=== PATIENT | male | born 1940 | race Caucasian/White ===

== ENCOUNTER → 2021-04-21 11:39 | Outpatient (BNVA) | payer MEDICARE, BC, SELFPAY | PROVIDERS: PCP Family Medicine; Visit Provider Internal Medicine | DX: J44.9 Chronic obstructive pulmonary disease, unspecified (principal) | CPT/HCPCS: 99212 ==

== ENCOUNTER → 2022-04-12 11:36 | Outpatient (BNVA) | payer MEDICARE, BC, SELFPAY | PROVIDERS: PCP Family Medicine; Visit Provider Internal Medicine | DX: J44.9 Chronic obstructive pulmonary disease, unspecified (principal); R06.00 Dyspnea, unspecified; Z79.899 Other long term (current) drug therapy | CPT/HCPCS: 99212 ==

== ENCOUNTER 2022-06-21 11:54 | Outpatient (REF) | payer MEDICARE, BC, SELFPAY ==
--- NOTE | 2022-06-21 14:52 | PFT_ITS ---
This is a pre and post spirometry[place] [address]. This is not a pulmonary function study. INDICATION: COPD. SPIROMETRY: FEV1 to FVC 47% with an FEV1 of 0.89 which is 32% predicted and an FVC of 1.9 L, which is 53% predicted. Post bronchodilators, there was a trend improvement of the FVC of 11%. To note, the [id number] decreased down to 19% predicted. COMPARISONS: None. INTERPRETATION: There is an obstructive ventilatory defect consistent with very severe COPD. The patient had a trend response to bronchodilators and significant small airways disease. Clinical correlation warranted. MD DARYL James/BEATRIZ / [id number]
== END 2022-06-21 11:55 | disposition home or self-care (01) ==
LOC: HO.RESP 11:54
PROVIDERS: PCP Family Medicine; Visit Provider Internal Medicine
DX: R06.00 Dyspnea, unspecified (principal); J44.9 Chronic obstructive pulmonary disease, unspecified
CPT/HCPCS: 94060; 99212

== ENCOUNTER → 2022-07-18 15:18 | Outpatient (BNVA) | payer MEDICARE, BC, SELFPAY | PROVIDERS: Visit Provider Internal Medicine | DX: J44.9 Chronic obstructive pulmonary disease, unspecified (principal); R06.00 Dyspnea, unspecified; L97.929 Non-pressure chronic ulcer of unspecified part of left lower leg with unspecified severity | CPT/HCPCS: Q3014 ==

== ENCOUNTER → 2022-08-09 11:15 | Outpatient (BNVA) | payer MEDICARE, BC, SELFPAY | PROVIDERS: Visit Provider Internal Medicine | DX: J44.9 Chronic obstructive pulmonary disease, unspecified (principal); R06.00 Dyspnea, unspecified; R09.02 Hypoxemia; L97.929 Non-pressure chronic ulcer of unspecified part of left lower leg with unspecified severity | CPT/HCPCS: 94618; 99212 ==

== ENCOUNTER → 2023-03-30 11:04 | Outpatient (BNVA) | payer MEDICARE, BC, SELFPAY | PROVIDERS: Visit Provider Internal Medicine | DX: J44.9 Chronic obstructive pulmonary disease, unspecified (principal); R06.00 Dyspnea, unspecified; L97.929 Non-pressure chronic ulcer of unspecified part of left lower leg with unspecified severity | CPT/HCPCS: 99212 ==

== ENCOUNTER 2023-05-23 12:59 | Outpatient (AMB) | payer MEDICARE, BC, SELFPAY ==
[2023-05-23 13:15] VITALS: BMI 31.6
--- NOTE | 2023-05-23 13:15 | A.OFFVIS_ITS ---
Intake Vital Signs 05/23/23 13:15 Height 5 ft 8 in Weight 208 lb BMI 31.6 Intake Visit Reasons: [employer]ER-Left hand CTS EMG done Intake Note: Altaf 82 yr old left hand dominant male presents today for numbness and tingling of both hands. Hx of left hand CTR DOS 03/03/22. States he cont's to have numbness and tingling in his left hand. Patient states he had an EMG done in [place]. Patient has tried injections in the past with temporarily help. Patient would like to discuss treatment vs surgical intervention. Allergies No Known Allergies [No Known Allergies*] Allergy (Verified 05/23/23 13:16) HPI [employer]ER-Left hand CTS EMG done HPI Details Altaf is an 82 year old left hand dominant man who presents with complaints of left hand numbness & pain. He has a hx of a left carpal tunnel release in [place], DOS: 03/03/22. He reports continued numbness in the median nerve distribution of the left hand following his surgery. He also complains of numbness in the small finger of the left hand He also complains of pain in multiple fingers of his left hand, as well as some pain in his forearm. He says he has stiffness in his fingers and works on ROM at home, using an exercise ball at times. He says that he has lost motor function in his left hand. He says he has lost writing ability & dexterity in his hand. He says he has difficulties caring for himself in the bathroom due to his hand numbness. He was frustrated with his treatment by the doctors in [place]. He reports having multiple MRI's performed following his carpal tunnel surgery, but says no one sat with him and explained the results of this study He has a hx of spinal stenosis & psoriatic arthritis. His NCS showed left carpal tunnel and some evidence of cervical radiculopathy. He had an MRI of his C-spine done [facility] Medical History COPD (chronic obstructive pulmonary disease) Hypoxemia Leg ulcer, left Social History (Updated 05/23/23 @ 13:17 by ROSMERY Mckinney) Patient Tobacco Use Status: Former Tobacco user Current occupational status: retired Current occupation: left hand Review of Systems Const All systems reviewed & are unremarkable except as noted in HPI and below Physical Exam Vital Signs: BMI result Body Mass Index 31.6 Const General: cooperative, healthy appearing and no acute distress Orientation/consciousness: patient oriented x3 HEENT Head: Yes normocephalic and Yes atraumatic Eyes EOM: EOMs intact bilaterally Resp Effort & Inspection: normal respiratory effort and able to speak in complete sentences Cardio Jugular venous distension: no JVD Skin General skin exam: turgor normal Rashes: no rashes Neuro General: patient oriented x3 Extrem Other: Evaluation of Left Upper Extremity: The patient is alert, oriented, and in no acute distress. He expressed anger at his previous hand surgeon, and the [facility] in general Neuro: Numbness at the tips of all digits, slightly better sensation in the sma ll finger Some thenar atrophy Weak APB muscle belly firing Vascular: Cap refill brisk ROM: He can make a fist and extend all his digits No visible locking or catching of any fingers seen today Not particularly tender over the a1 gail the fingers of his left hand He has some generalized arthritic changes in his hand. Skin: No lacerations or abrasions. General: No Ecchymosis. No Erythema or evidence of infection. Nerve Conduction Study: Done on left side only From [facility] [place], [place] Approximately November 2021 Dictated in from scanned document: Comments: 1. Borderline normal distal latency 2 left median sensory nerve. Normal left ulnar and radial sensory nerve conduction studies 2. Borderline normal distal latency to the left median motor nerve. Normal left ulnar motor nerve conduction. 3. Normal insertional activity, JENA P waveform, duration and amplitude, and recruitment frequency in the muscle sampled Impression: 1. There is an improvement of the distal latency at the sensory and motor median nerves. 2. The patient has reduced amplitude in both studies which could be consistent of chronic radiculopathy. MRI of the cervical spine to evaluate for cervical radiculitis ordered today. 3. No evidence of plexopathy, motor neuropathy, myopathy, peripheral neuropathy or mononeuropathies in the limbs studied Skyler Ramirez MD Approximately November of 2021: No date seen on document Psych Appearance: grossly normal Affect: normal affect Attitude: cooperative Assessment & Plan Assessment & Plan (1) History of carpal tunnel surgery of left wrist: Code(s): Z98.890 - Other specified postprocedural states (2) Cervical radiculopathy: Code(s): M54.12 - Radiculopathy, cervical region (3) Weakness of left upper extremity: Code(s): R29.898 - Other symptoms and signs involving the musculoskeletal system Plan Assessment & Plan: 1. Left Carpal tunnel syndrome, S/P release DOS: 03/03/22, in [place] With dense numbness in the median nerve distribution before and following surgery With weak APB muscle belly firing and some thenar atrophy 2. Left hand numbness 3. Left upper extremity weakness Patient feels this is worsening Evidence of cervical radiculopathy seen on NCS The patient is bitterly frustrated and unhappy that he continues to have numbness and poor motor function o his LUE. I had a long discussion with him concerning his dense numbness and poor motor function, and explained that this may be caused by issues with his C-spine. His NCS revealed possible evidence of cervical radiculopathy I explained to him that I do not think that he needs a 2nd carpal tunnel release, and that a carpal tunnel injection would not be helpful. I referred him to Dr. Alonso in Pain Management for assessment, and recommend that he bring a copy of his most recent MRI results to this appointment if possible. I explained that I do not know if he will then be referred to the spine surgeon or not. Please note that greater than 60 minutes was spent with this patient going over the history, evaluating the patient and radiographs, formulating possible mitzi tment options, discussing them with the patient, and documenting the visit. Scribed for Adrienne Wells MD by Simone Hebert, emergency medical dispatcher, on 05/23/23 at 2:05 PM, EST. Orders: Referrals Pain Management Referral R29.898 - Other symptoms and signs involving the musc uloskeletal system Coding Level of Care Code New Pt Level 5 (72008) Diagnoses History of carpal tunnel surgery of left wrist Z98.890 Cervical radiculopathy M54.12 Weakness of left upper extremity R29.898
== END 2023-05-23 14:03 | disposition home or self-care (01) ==
PROVIDERS: Visit Provider Orthopaedic Surgery
DX: M54.12 Radiculopathy, cervical region (principal); R29.898 Other symptoms and signs involving the musculoskeletal system
CPT/HCPCS: 99205

== ENCOUNTER → 2023-05-23 12:59 | Outpatient (BNVA) | payer MEDICARE, BC, SELFPAY | PROVIDERS: Visit Provider Orthopaedic Surgery | DX: M54.12 Radiculopathy, cervical region (principal); R29.898 Other symptoms and signs involving the musculoskeletal system; Z98.890 Other specified postprocedural states | CPT/HCPCS: 99202 ==

== ENCOUNTER 2023-08-09 13:04 | Outpatient (AMB) | payer MEDICARE, BC, SELFPAY ==
--- NOTE | 2023-08-09 13:12 | MHC.OFFVIS ---
Intake Vital Signs 08/09/23 13:17 Height 5 ft 8 in Weight 204 lb BMI 31.0 BP 130/70 Blood Pressure Location Lt brachial Position Sitting Pulse 98 Pulse Oximetry (%) 97 Intake Visit Reasons: copd Allergies No Known Allergies [No Known Allergies*] Allergy (Verified 08/09/23 13:25) Medication List - Last Reconciled 08/09/23 by Ziggy Capellan MD albuterol sulfate 2.5 mg (6 mL) inhalation Q4-6H PRN albuterol sulfate 90 mcg/actuation 2 puffs PO Q4-6H PRN 30 days amlodipine 10 mg PO DAILY 30 days apixaban (Eliquis) 5 mg PO BID ascorbate calcium (vitamin C) 500 mg PO DAILY buspirone 10 mg PO TID cholecalciferol (vitamin D3) 50 mcg PO DAILY twgpputonmt-rqbqqpscw-pwcgwcrs 100-62.5-25 mcg (Trelegy Ellipta) 1 ea PO DAILY tramadol 50 mg PO BID PRN trazodone 100 mg PO BEDTIME PRN Do you need a note to return to daycare/school/sports/work: No HPI copd HPI Details This 83 years old gentleman is a known case of chronic obstructive pulmonary disease. He has been relatively stable during the past 1 year, without any acute exacerbation. His the regimen for COPD is simple so that. He can comply with TRELEGY 1 INHALATION DAILY PROAIR 1 OR 2 PUFFS Q 4-6 HOURS ONLY P.R.N. . He gets short of breath on minimal exertion like walking. However he does not walk much due to his impaired locomotion. He does have a walker at home but is to have E and he would need to a lightweight. Walker He talked to me about non pulmonary things the especially the following. 1- has ongoing discomfort in the left hand and fingers due to carpal tunnel syndrome, he has had previous surgery without much benefit. 2- chronic constipation, and ends up using Dulcolax frequently, he does have a stool softener but does not use it all the time. 3- as chronic back pain and discomfort in the knees, due to which his walking is somewhat on stable. 4- as he gets short of breath on minimal walking he was enquiring if he can get oxygen. He also snores at night .but sleeps good There is a possibility of obstructive sleep apnea, or at least nocturnal hypoxemia. The problem at this time is that he wants to go back to [place] next week, and there is not much time for us to complete workup for the above issues. He would need. SIX MINUTES WALK TEST TO QUALIFY FOR PORTABLE O2. HE WOULD ALSO NEED OVERNIGHT OXIMETRY RECORDING , TO CHECK FOR NOCTURNAL HYPOXEMIA. As he is going to live in [place] for the next 6 months, I have suggested to him to see the primary care physician over there and have Referral for a pulmonary consult, or even the primary care physician can do 6 minutes walk and order overnight oximetry recording [facility] Medical History Hypoxemia Leg ulcer, left COPD (chronic obstructive pulmonary disease) Social History Patient Tobacco Use Status: Former Tobacco user Current occupational status: retired Current occupation: left hand Review of Systems Const All systems reviewed & are unremarkable except as noted in HPI and below Reports weight gain Eyes Reports no additional complaints ENT Reports no additional complaints Card Denies chest pain, Denies leg edema and Reports dyspnea on exertion Resp Reports cough (OCCASIONAL , MILD ), Reports dyspnea on exertion and Denies wheezing GI Reports no additional complaints Musc Reports arthralgias (MILD ) Neuro Reports no additional complaints Psych Reports no additional complaints Endo Reports no additional complaints Aller/Immun Denies wheezing Physical Exam Vital Signs: Last Vital Signs Pulse 98 08/09/23 13:17 BP 130/70 08/09/23 13:17 Pulse Ox 97 08/09/23 13:17 BMI result Body Mass Index 31.0 Const General: healthy appearing (EXCEPT FOR BEING OVERWEIGHT .), comfortable, no acute distress, alert and awake Orientation/consciousness: patient oriented x3 HEENT Head: Yes normal to inspection General nose exam: No nasal polyps present and No nasal discharge present Face and sinus: Yes sinuses nontender Mouth: oropharynx normal Throat: Yes posterior oropharynx normal Eyes General: appearance normal, both eyes and all related structures Neck Neck: Yes normal visual inspection, Yes no lymphadenopathy, Yes trachea midline and Yes no JVD Thyroid: Thyroid normal Chest Chest palpation & inspection: normal inspection of the chest, normal palpation of entire chest wall and no tenderness Resp Other: PERCUSSION NOTE IS RESONANT, BREATH SOUNDS ARE VERY DISTANT WITH PROLONGED EXPIRATORY PHASE. NO DEFINITE WHEEZES OR CREPITATIONS ARE HEARD. Effort & Inspection: prolonged expiratory phase Auscultation: no crackles, wheezes (A FEW CREPS OVER RT LL./BASE ) and diminished lung sounds Cardio Palpation: normal PMI Rate: regular rate Rhythm: regular rhythm Heart sounds: no gallops and no murmurs GI Palpation (GI): Soft to palpation, nontender, No hepatosplenomegaly present, no masses and Other GI palpation findings present ( ABDOMINAL WALL IS SOMEWHAT PROTUBERANT BUT NO MASS) Auscultation: normal bowel sounds Back/Spine/Pelvis Thoracic/Lumbar Spine: thoracic and lumbar spine normal to inspection and thoraco-lumbar ROM limited Skin General skin exam: no rashes or lesions noted Neuro General: patient oriented x3, gait normal (Slightly on stable due to arthritis of his knees) and no focal motor deficits Cranial nerves: Yes CN's II-XII intact bilaterally Extrem General: Yes normal to inspection, Yes no calf tenderness, Yes edema (CHRONIC STASIS EDEMA OF BOTH LEGS, BUT MINIMAL AT THIS TIME), Yes venous stasis dermatitis and Yes other (CHRONIC ULCER ON THE LEFT LEG SEEMS TO BE WELL HEALED ) Psych Appearance: grossly normal Speech and movement: Normal speech and movement present Assessment & Plan Assessment & Plan (1) COPD (chronic obstructive pulmonary disease): Comment: HE HAS VERY SEVERE CHRONIC OBSTRUCTIVE PULMONARY DISEASE. AND IT HAS BEEN RELATIVELY STABLE . TX: CONTINUE USING TRELEGY ELLIPTA 1 INHALATION DAILY. PROAIR HFA 2 PUFFS Q 6 HRS PRN WHEN OUTDOORS . ALBUTEROL SOLUTION IN THE NEBULIZER Q 6 HOURS P.R.N..MMWHEN INDOORS CONTINUE TO DO DEEP BREATHING EXERCISES WITH THE INCENTIVE SPIROMETRY DEVICE. Code(s): J44.9 - Chronic obstructive pulmonary disease, unspecified (2) Dyspnea on exertion: Comment: INCREASED DYSPNEA ON EXERTION IS DUE TO COPD AND GENERAL DECONDITIONING. Code(s): R06.00 - Dyspnea, unspecified (3) Hypoxemia: Comment: I SUSPECT THAT HE HAS NOCTURNAL HYPOXEMIA, HE ALSO DOES HAVE EXERCISE INDUCED HYPOXEMIA BUT, ON HIS WALKING TEST O2 SAT DID NOT GO BELOW 89%. LAST YEAR IN JULY 2022 HE HAD OVERNIGHT OXIMETRY RECORDING, WHICH SHOWED O2 SAT BELOW 88% ONLY FOR 4 MINUTES. IT MAY HAVE GOTTEN WORSE. SO HE SHOULD HAVE OVERNIGHT OXIMETRY RECORDING AGAIN, BUT HE IS MOVING DOWN TO [place] IN THE NEXT WEEK, I SUGGESTED THAT HE SHOULD HAVE IT DONE WHILE IN [place]. Code(s): R09.02 - Hypoxemia Coding Level of Care Code Est Pt Level 4 (22422) Diagnoses COPD (chronic obstructive pulmonary disease) J44.9 Dyspnea on exertion R06.00 Hypoxemia R09.02
[2023-08-09 13:17] VITALS: BP 130/70; PULSE 98; O2SAT 97; BMI 31.0
== END 2023-08-09 13:50 | disposition home or self-care (01) ==
PROVIDERS: Visit Provider Internal Medicine
DX: J44.9 Chronic obstructive pulmonary disease, unspecified (principal); R06.00 Dyspnea, unspecified; R09.02 Hypoxemia
CPT/HCPCS: 99214

== ENCOUNTER → 2023-08-09 13:04 | Outpatient (BNVA) | payer MEDICARE, BC, SELFPAY | PROVIDERS: Visit Provider Internal Medicine | DX: J44.9 Chronic obstructive pulmonary disease, unspecified (principal); R06.00 Dyspnea, unspecified; R09.02 Hypoxemia | CPT/HCPCS: 99212 ==

== ENCOUNTER 2024-03-27 14:11 | Outpatient (AMB) | payer MEDICARE, BC, SELFPAY ==
[2024-03-27 14:46] VITALS: BP 130/102; PULSE 67; O2SAT 95
--- NOTE | 2024-03-27 14:46 | A.OFFVIS_ITS ---
Vital Signs 03/27/24 14:46 Height 5 ft 8 in BP 130/102 H Blood Pressure Location Lt brachial Position Sitting Pulse 67 Pulse Source Pulse Oximeter Pulse Oximetry (%) 95 Oxygen Delivery Method Room Air Intake Visit Reasons: COPD Intake Note: pt is here for follow up and having issues with hot weather and having a very difficult time with breathing. Cataract Lens Generator Required: No Allergies No Known Allergies [No Known Allergies*] Allergy (Verified 03/27/24 16:09) Medication List - Last Reconciled 03/27/24 by Ziggy Capellan MD albuterol sulfate 2.5 mg (6 mL) inhalation Q4-6H PRN albuterol sulfate 90 mcg/actuation 2 puffs PO Q4-6H PRN apixaban (Eliquis) 5 mg PO BID ascorbate calcium (vitamin C) 500 mg PO DAILY buspirone 10 mg PO TID cholecalciferol (vitamin D3) 50 mcg PO DAILY qzwjedjuhkg-lumomlhbx-okiocpbb 100-62.5-25 mcg (Trelegy Ellipta) 1 inh PO DAILY meloxicam 15 mg PO DAILY olmesartan 20 mg PO DAILY tramadol 50 mg PO BID PRN trazodone 100 mg PO BEDTIME PRN Do you need a note to return to daycare/school/sports/work: No HPI HPI COPD: Details: Altaf Beltran is 83 years old gentleman, who has come back from [place] since a few weeks ago, and comes today for his pulmonary follow-up. He has impaired locomotion due to chronic stasis edema of the legs, congestive heart failure, and COPD. Comes in wheelchair, at home can walk around with a walker. According to his he is short of breath most of the time, and uses albuterol inhaler quite frequent. He does use Trelegy Ellipta 1 inhalation daily. He claims that his breathing is stable as usual. However his tells us that he is actually more short of breath than before. Altaf, say is that his main problem is constipation and nonspecific abdominal pain and cramps. He has been using Dulcolax 2 tablets every few days with good results but then for a few days he does not have any bowel movement. He does not have any primary care physician to go to, so he wanted to discuss this issue with me. [facility] Medical History Hypoxemia Leg ulcer, left COPD (chronic obstructive pulmonary disease) Social History Patient Tobacco Use Status: Former Tobacco user Current occupational status: retired Current occupation: left hand Review of Systems Const All systems reviewed & are unremarkable except as noted in HPI and below Reports weight gain Eyes Reports no additional complaints ENT Reports no additional complaints Card Denies chest pain, Denies leg edema and Reports dyspnea on exertion Resp Reports cough (OCCASIONAL , MILD ), Reports dyspnea on exertion and Denies wheezing GI Reports no additional complaints Musc Reports arthralgias (MILD ) Neuro Reports no additional complaints Psych Reports no additional complaints Endo Reports no additional complaints Aller/Immun Denies wheezing Physical Exam Vital Signs: Last Vital Signs Pulse 67 03/27/24 14:46 BP 130/102 H 03/27/24 14:46 Pulse Ox 95 03/27/24 14:46 Oxygen Delivery Method Room Air 03/27/24 14:46 Const General: healthy appearing (EXCEPT FOR BEING OVERWEIGHT .), comfortable, no acute distress, alert and awake Orientation/consciousness: patient oriented x3 HEENT Head: Yes normal to inspection General nose exam: No nasal polyps present and No nasal discharge present Face and sinus: Yes sinuses nontender Mouth: oropharynx normal Throat: Yes posterior oropharynx normal Eyes General: appearance normal, both eyes and all related structures Neck Neck: Yes normal visual inspection, Yes no lymphadenopathy, Yes trachea midline and Yes no JVD Thyroid: Thyroid normal Chest Chest palpation & inspection: normal inspection of the chest, normal palpation of entire chest wall and no tenderness Resp Other: PERCUSSION NOTE IS RESONANT, BREATH SOUNDS ARE VERY DISTANT WITH PROLONGED EXPIRATORY PHASE. NO DEFINITE WHEEZES OR CREPITATIONS ARE HEARD. Effort & Inspection: prolonged expiratory phase Auscultation: no crackles, no wheezes and diminished lung sounds Cardio Palpation: normal PMI Rate: regular rate Rhythm: regular rhythm Heart sounds: no gallops and no murmurs GI Palpation (GI): Soft to palpation, nontender, No hepatosplenomegaly present, no masses and Other GI palpation findings present ( ABDOMINAL WALL IS SOMEWHAT PROTUBERANT BUT NO MASS) Auscultation: normal bowel sounds Back/Spine/Pelvis Thoracic/Lumbar Spine: thoracic and lumbar spine normal to inspection and thoraco-lumbar ROM limited Skin General skin exam: no rashes or lesions noted Neuro General: patient oriented x3, gait normal (Slightly on stable due to arthritis of his knees) and no focal motor deficits Cranial nerves: Yes CN's II-XII intact bilaterally Extrem General: Yes normal to inspection, Yes no calf tenderness, Yes edema (CHRONIC STASIS EDEMA OF BOTH LEGS, BUT MINIMAL AT THIS TIME), Yes venous stasis dermatitis and Yes other Psych Appearance: grossly normal Speech and movement: Normal speech and movement present Assessment & Plan Assessment & Plan (1) COPD (chronic obstructive pulmonary disease): Comment: HE HAS VERY SEVERE CHRONIC OBSTRUCTIVE PULMONARY DISEASE. AND IT HAS BEEN RELATIVELY STABLE , NOW SINCE HE HAS COME BACK FROM [place] HE COMPLAINS OF INCREASED SHORTNESS OF BREATH, WITH FREQUENT USE OF RESCUE INHALER. YET HE DOES NOT SEEM TO HAVE EVIDENCE OF ANY CHEST INFECTION. Code(s): J44.9 - Chronic obstructive pulmonary disease, unspecified Category: Medical Plan: TX: CONTINUE USING TRELEGY ELLIPTA 1 INHALATION DAILY. PROAIR HFA 2 PUFFS Q 6 HRS PRN WHEN OUTDOORS . ALBUTEROL SOLUTION IN THE NEBULIZER Q 6 HOURS P.R.N..WHEN INDOORS (2) Dyspnea on exertion: Comment: INCREASED DYSPNEA ON EXERTION IS DUE TO COPD AND GENERAL DECONDITIONING. PATIENT NEEDS TO BE CHECKED FOR HYPOXEMIA. Code(s): R06.00 - Dyspnea, unspecified Category: Medical Plan: ABOVE (3) Hypoxemia: Comment: I SUSPECT THAT HE HAS NOCTURNAL HYPOXEMIA, WE WILL PLAN TO DO AN OVERNIGHT OXIMETRY RECORDING. HE CAN NOT HAVE 6 MINUTES WALK TEST. Code(s): R09.02 - Hypoxemia Category: Medical Plan: OVERNIGHT OXIMETRY RECORDING IS ORDERED. Plan * FOR HIS CONSTIPATION I HAVE ADVISED HIM TO USE COLACE 100 MG ONCE A DAY REGULARLY. AND AVOID USING STRONGER LAXATIVES. HE ALSO NEEDS TO TAKE HIGH ROUGHAGE TYPE OF DIET, WHICH IS EXPLAINED TO HIS . Coding Level of Care Code Est Pt Level 4 (80978) Diagnoses COPD (chronic obstructive pulmonary disease) J44.9 Dyspnea on exertion R06.00 Hypoxemia R09.02
== END 2024-03-27 15:21 | disposition home or self-care (01) ==
PROVIDERS: Visit Provider Internal Medicine
DX: J44.9 Chronic obstructive pulmonary disease, unspecified (principal); R06.00 Dyspnea, unspecified; R09.02 Hypoxemia
CPT/HCPCS: 99214

== ENCOUNTER → 2024-03-27 14:11 | Outpatient (BNVA) | payer MEDICARE, BC, SELFPAY | PROVIDERS: Visit Provider Internal Medicine | DX: J44.9 Chronic obstructive pulmonary disease, unspecified (principal); R06.00 Dyspnea, unspecified; R09.02 Hypoxemia | CPT/HCPCS: 99212 ==

== ENCOUNTER 2024-05-06 11:02 | Outpatient (AMB) | payer MEDICARE, BC, SELFPAY ==
--- NOTE | 2024-05-06 11:02 | MHC.OFFVIS ---
Intake Visit Reasons: Cervical Radiculopathy Allergies No Known Allergies [No Known Allergies*] Allergy (Verified 03/27/24 16:09) PFSH Medical History Hypoxemia Leg ulcer, left COPD (chronic obstructive pulmonary disease) Social History Patient Tobacco Use Status: Former Tobacco user Current occupational status: retired Current occupation: left hand Telehealth Telehealth Telehealth Platform: [employer] Location of provider rendering services: practice address Location of patient: address on file Patient Identification confirmed using: Name, : Yes Telehealth method: video Patient verbally consented to treatment: Yes Patient verbally consented to billing insurance company: Yes Patient informed of any privacy concerns related to visit: Yes Coding
--- NOTE | 2024-05-06 11:02 | MHC.OFFVIS ---
Intake Visit Reasons: Cervical Radiculopathy Allergies No Known Allergies [No Known Allergies*] Allergy (Verified 03/27/24 16:09) HPI HPI Cervical Radiculopathy: Details: 83-year-old male who presents today to the office for an evaluation of cervical radiculopathy. He has a history of a left carpal tunnel release in [place], DOS: 03/03/22. He reports continued numbness in the median nerve distribution of the left hand following his surgery.? He also complains of numbness in the small and ring fingers of the left hand. He also complains of pain and soreness in the upper wrist and palm. He rates his pain at 8/10 in intensity. He says he has stiffness in his fingers and works on ROM at home, using an exercise ball at times. He says that he has lost motor function in his left hand. He has lost writing ability and dexterity in his hand. He has difficulties caring for himself in the bathroom due to his hand numbness. He denies any neck pain. He has a history of spinal stenosis and psoriatic arthritis. His NCS showed a left carpal tunnel and some evidence of cervical radiculopathy. He had an MRI of his c-spine in [place]. He has not done any physical therapy in the past. He had an injection in his wrist at the pain clinic at [place].? [facility] Medical History Hypoxemia Leg ulcer, left COPD (chronic obstructive pulmonary disease) Social History Patient Tobacco Use Status: Former Tobacco user Current occupational status: retired Current occupation: left hand Review of Systems Const All systems reviewed & are unremarkable except as noted in HPI and below Physical Exam Vital Signs: Patient visually demonstrated pain in his left pinky, index fingers and left ulnar aspect of the wrist via video link. Telehealth Telehealth Telehealth Platform: Telephone Location of provider rendering services: practice address Location of patient: address on file Patient Identification confirmed using: Name, : Yes Telehealth method: video Patient verbally consented to treatment: Yes Patient verbally consented to billing insurance company: Yes Patient informed of any privacy concerns related to visit: Yes Minutes spent on Phone/Video with Pt.: 12 Results Reviewed Results Reviewed: No imaging is available for review. Assessment & Plan Assessment & Plan (1) Cervical radiculopathy: Code(s): M54.12 - Radiculopathy, cervical region Category: Medical Plan Based on results of the nerve conduction study, it appears that he does not have any ulnar nerve process to explain his left hand symptoms in the distribution of the ulnar nerve. In that case, a cervical radiculitis source is more likely. I advised the patient to get a copy of his cervical MRI results and send/bring them to us for review. Once I review the MRI images, we can plan for potential interventional therapy in combination with physical therapy for longer-term relief.? In the meantime, a referral was provided to physical therapy. The patient will receive a call to schedule an appointment. I did school counsellor him that given the longstanding nature of his symptoms, it might take 3-4 months of dedicated physical therapy before he starts to observe a meaningful difference in his symptoms. Patient expressed understanding. Scribed for Dr. Alonso by Bartolome Wright, medical collections, on 05/06/2024. I, Dr. Alonso, have personally reviewed and agree with the information entered by the scribe. Orders: Orders PT Evaluation and Treatment Today M54.12 - Radiculopathy, cervical region Coding Level of Care Code Tele New Pt Level 4 (89287) Diagnoses Cervical radiculopathy M54.12
== END 2024-05-06 11:03 | disposition home or self-care (01) ==
LOC: HO.PMC 11:02
PROVIDERS: Visit Provider Internal Medicine
DX: M54.12 Radiculopathy, cervical region (principal)
CPT/HCPCS: 99203

== ENCOUNTER → 2024-05-06 11:02 | Outpatient (BNVA) | payer MEDICARE, BC, SELFPAY | PROVIDERS: Visit Provider Internal Medicine ==

== ENCOUNTER 2024-05-30 11:04 | Outpatient (AMB) | payer MEDICARE, BC, SELFPAY ==
[2024-05-30 11:36] VITALS: BP 150/102; PULSE 74; O2SAT 92; BMI 31.0
--- NOTE | 2024-05-30 11:36 | MHC.OFFVIS ---
Vital Signs 05/30/24 11:36 Height 5 ft 8 in Weight 203 lb 14.841 oz BMI 31.0 BP 150/102 H Blood Pressure Location Lt brachial Position Sitting Pulse 74 Pulse Source Pulse Oximeter Pulse Oximetry (%) 92 Oxygen Delivery Method Room Air Intake Visit Reasons: COPD Intake Note: pt is here for follow up and is using the oxygen at night, and is still short of breath with exertion. [employer] Tool Required: No Allergies No Known Allergies [No Known Allergies*] Allergy (Verified 05/30/24 11:53) Medication List - Last Reconciled 05/30/24 by Ziggy Capellan MD albuterol sulfate 2.5 mg (6 mL) inhalation Q4-6H PRN albuterol sulfate 90 mcg/actuation 2 puffs PO Q4-6H PRN apixaban (Eliquis) 5 mg PO BID ascorbate calcium (vitamin C) 500 mg PO DAILY buspirone 10 mg PO TID cholecalciferol (vitamin D3) 50 mcg PO DAILY ceynwqpslhd-cilyqehfo-tdwnwpsa 100-62.5-25 mcg (Trelegy Ellipta) 1 inh PO DAILY meloxicam 15 mg PO DAILY olmesartan 20 mg PO DAILY tramadol 50 mg PO BID PRN trazodone 100 mg PO BEDTIME PRN Do you need a note to return to daycare/school/sports/work: No HPI HPI COPD: Details: THIS 83 YEARS OLD VERY PLEASANT GENTLEMAN WITH ADVANCED CHRONIC OBSTRUCTIVE PULMONARY DISEASE AND COR PULMONALE, COMES FOR HIS ROUTINE FOLLOW-UP. HE HAS BEEN RELATIVELY STABLE. CONTINUES TO HAVE MILD INTERMITTENT COUGH MOSTLY AT NIGHT. HE DOES SLEEP FAIRLY WELL WITH O2 2 L/MINUTE AT NIGHTTIME. USES HIS RESPIRATORY MEDS REGULARLY. LUCKILY HE HAS HAD NO RESPIRATORY INFECTION. HE DID NOT GET MUCH SWELLING OF HIS LOWER EXTREMITIES. LOCOMOTION IS QUITE IMPAIRED, WALKING IS SLOW BUT HE STILL WALKS WITHOUT ANY ASSISTANCE. [facility] Medical History Hypoxemia Leg ulcer, left COPD (chronic obstructive pulmonary disease) Social History Patient Tobacco Use Status: Former Tobacco user Current occupational status: retired Current occupation: left hand Review of Systems Const All systems reviewed & are unremarkable except as noted in HPI and below Reports weight gain Eyes Reports no additional complaints ENT Reports no additional complaints Card Denies chest pain, Denies leg edema and Reports dyspnea on exertion Resp Reports cough (OCCASIONAL , MILD ), Reports dyspnea on exertion and Denies wheezing GI Reports no additional complaints Musc Reports arthralgias (MILD ) Neuro Reports no additional complaints Psych Reports no additional complaints Endo Reports no additional complaints Aller/Immun Denies wheezing Physical Exam Vital Signs: Last Vital Signs Pulse 74 05/30/24 11:36 BP 150/102 H 05/30/24 11:36 Pulse Ox 92 05/30/24 11:36 Oxygen Delivery Method Room Air 05/30/24 11:36 BMI result Body Mass Index 31.0 Const General: healthy appearing (EXCEPT FOR BEING OVERWEIGHT .), comfortable, no acute distress, alert and awake Orientation/consciousness: patient oriented x3 HEENT Head: Yes normal to inspection General nose exam: No nasal polyps present and No nasal discharge present Face and sinus: Yes sinuses nontender Mouth: oropharynx normal Throat: Yes posterior oropharynx normal Eyes General: appearance normal, both eyes and all related structures Neck Neck: Yes normal visual inspection, Yes no lymphadenopathy, Yes trachea midline and Yes no JVD Thyroid: Thyroid normal Chest Chest palpation & inspection: normal inspection of the chest, normal palpation of entire chest wall and no tenderness Resp Other: PERCUSSION NOTE IS RESONANT, BREATH SOUNDS ARE VERY DISTANT WITH PROLONGED EXPIRATORY PHASE. NO DEFINITE WHEEZES OR CREPITATIONS ARE HEARD. Effort & Inspection: prolonged expiratory phase Auscultation: no crackles, no wheezes and diminished lung sounds Cardio Palpation: normal PMI Rate: regular rate Rhythm: regular rhythm Heart sounds: no gallops and no murmurs GI Palpation (GI): Soft to palpation, nontender, No hepatosplenomegaly present, no masses and Other GI palpation findings present ( ABDOMINAL WALL IS SOMEWHAT PROTUBERANT BUT NO MASS) Auscultation: normal bowel sounds Back/Spine/Pelvis Thoracic/Lumbar Spine: thoracic and lumbar spine normal to inspection and thoraco-lumbar ROM limited Skin General skin exam: no rashes or lesions noted Neuro General: patient oriented x3, gait normal (Slightly on stable due to arthritis of his knees) and no focal motor deficits Cranial nerves: Yes CN's II-XII intact bilaterally Extrem General: Yes normal to inspection, Yes no calf tenderness, Yes edema (CHRONIC STASIS EDEMA OF BOTH LEGS, BUT MINIMAL AT THIS TIME), Yes venous stasis dermatitis and Yes other Psych Appearance: grossly normal Speech and movement: Normal speech and movement present Assessment & Plan Assessment & Plan (1) COPD (chronic obstructive pulmonary disease): Comment: HE HAS VERY SEVERE CHRONIC OBSTRUCTIVE PULMONARY DISEASE. AND IT HAS BEEN RELATIVELY STABLE . HE DOES HAVE PERIODS WHEN HE GETS MORE SHORT OF BREATH THAN USUAL, IT MAY BE RELATED TO THE DEGREE OF FLUID RETENTION. HE FEELS BETTER WITH USE OF OXYGEN AT NIGHT. HE WOULD LIKE TO PORTABLE OXYGEN FOR DAYTIME. Code(s): J44.9 - Chronic obstructive pulmonary disease, unspecified Category: Medical Plan: CONTINUE TRELEGY ELLIPTA 1 INHALATION DAILY ALBUTEROL 2.5 MG IN THE NEBULIZER Q 4-6 HOURS P.R.N AT HOME ALBUTEROL HFA 2 PUFFS Q.4-6 HOURS P.R.N. WHEN OUTDOORS . WE DID TALK TO HIM AND CAUTIONED AGAINST USING ALBUTEROL TOO FREQUENTLY. (2) Dyspnea on exertion: Comment: INCREASED DYSPNEA ON EXERTION IS DUE TO COPD AND GENERAL DECONDITIONING. TODAY PATIENT DID QUALIFY FOR OXYGEN, AND ONCE WE PROVIDE HIM O2 WITH THE PORTABLE CYLINDER, HE IS EXPECTED TO BETTER. Code(s): R06.00 - Dyspnea, unspecified Category: Medical Plan: CONTINUE THE PRESENT MEDICATION, TRY TO WALK AROUND IN THE HOUSE HAS MUCH POSSIBLE. INSTRUCTIONS TO USE PORTABLE OXYGEN. ARE GIVEN (3) Hypoxemia: Comment: THIS GENTLEMAN DOES HAVE NOCTURNAL HYPOXEMIA AND IS BEING TREATED WITH O2 AT NIGHT. 6 MINUTES WALK DONE TODAY AND HE DOES DESATURATE ON WALKING, HYPOXEMIA CONTROLLED WITH SUPPLEMENTAL OXYGEN AT 2 L/MINUTE Code(s): R09.02 - Hypoxemia Category: Medical Plan: WE WILL ORDER O2 WITH PORTABLE CYLINDER TO USE 2 L/MINUTE WHEN OUTDOORS AND WALKING. Coding Level of Care Code Est Pt Level 3 (73349) Diagnoses COPD (chronic obstructive pulmonary disease) J44.9 Dyspnea on exertion R06.00 Hypoxemia R09.02
[2024-05-30 13:25] VITALS: PULSE 64; O2SAT 95
== END 2024-05-30 12:09 | disposition home or self-care (01) ==
PROVIDERS: Visit Provider Internal Medicine
DX: J44.9 Chronic obstructive pulmonary disease, unspecified (principal); R06.00 Dyspnea, unspecified; R09.02 Hypoxemia
CPT/HCPCS: 94618; 99213

== ENCOUNTER → 2024-05-30 11:04 | Outpatient (BNVA) | payer MEDICARE, BC, SELFPAY | PROVIDERS: Visit Provider Internal Medicine | DX: J44.9 Chronic obstructive pulmonary disease, unspecified (principal); R06.00 Dyspnea, unspecified; R09.02 Hypoxemia | CPT/HCPCS: 94618; 99212 ==

== ENCOUNTER 2024-07-03 11:04 | Outpatient (AMB) | payer MEDICARE, BC, SELFPAY ==
[2024-07-03 11:28] VITALS: BP 152/102; PULSE 77; O2SAT 93; BMI 30.7
--- NOTE | 2024-07-03 11:28 | MHC.OFFVIS ---
Vital Signs 07/03/24 11:28 Height 5 ft 8 in Weight 202 lb BMI 30.7 BP 152/102 H Blood Pressure Location Lt brachial Position Sitting Pulse 77 Pulse Source Pulse Oximeter Pulse Oximetry (%) 93 Oxygen Delivery Method Room Air Intake Visit Reasons: COPD Intake Note: pt is here for follow up and states he is using the oxygen at home, he is fatigued, he does feel better with oxygen. Vp Ad Products And Planning Required: No Allergies No Known Allergies [No Known Allergies*] Allergy (Verified 07/03/24 11:38) Medication List - Last Reconciled 07/03/24 by Ziggy Capellan MD albuterol sulfate 2.5 mg (6 mL) inhalation Q4-6H PRN albuterol sulfate 90 mcg/actuation 2 puffs PO Q4-6H PRN apixaban (Eliquis) 5 mg PO BID ascorbate calcium (vitamin C) 500 mg PO DAILY buspirone 10 mg PO TID cholecalciferol (vitamin D3) 50 mcg PO DAILY zagmtzhfbls-afuzqzuhr-lngbcwic 100-62.5-25 mcg (Trelegy Ellipta) 1 inh PO DAILY meloxicam 15 mg PO DAILY olmesartan 20 mg PO DAILY tramadol 50 mg PO BID PRN trazodone 100 mg PO BEDTIME PRN Do you need a note to return to daycare/school/sports/work: No HPI HPI COPD: Details: THIS 83 YEARS OLD GENTLEMAN IS HERE FOR FOLLOW-UP FOR HIS COPD. ON HIS CURRENT REGIMEN HE IS DOING WELL. HE IS FEELING BETTER SINCE HE HAS BEEN USING OXYGEN AT NIGHT AND ALSO HAS THE PORTABLE OXYGEN FOR DAYTIME USE. HE HATES TO USE THE PORTABLE UNIT BECAUSE OF THE BULKY CYLINDER, WANTS TO GET POC SOON POSSIBLE. HE USES TRELEGY ONCE A DAY WHICH HAS BEEN VERY HELPFUL. [facility] Medical History Hypoxemia Leg ulcer, left COPD (chronic obstructive pulmonary disease) Social History Patient Tobacco Use Status: Former Tobacco user Current occupational status: retired Current occupation: left hand Review of Systems Const All systems reviewed & are unremarkable except as noted in HPI and below Reports weight gain Eyes Reports no additional complaints ENT Reports no additional complaints Card Denies chest pain, Denies leg edema and Reports dyspnea on exertion Resp Reports cough (OCCASIONAL , MILD ), Reports dyspnea on exertion and Denies wheezing GI Reports no additional complaints Musc Reports arthralgias (MILD ) Neuro Reports no additional complaints Psych Reports no additional complaints Endo Reports no additional complaints Aller/Immun Denies wheezing Physical Exam Vital Signs: Last Vital Signs Pulse 77 07/03/24 11:28 Pulse Ox 93 07/03/24 11:28 Oxygen Delivery Method Room Air 07/03/24 11:28 BMI result Body Mass Index 30.7 Const General: healthy appearing (EXCEPT FOR BEING OVERWEIGHT .), comfortable, no acute distress, alert and awake Orientation/consciousness: patient oriented x3 HEENT Head: Yes normal to inspection General nose exam: No nasal polyps present and No nasal discharge present Face and sinus: Yes sinuses nontender Mouth: oropharynx normal Throat: Yes posterior oropharynx normal Eyes General: appearance normal, both eyes and all related structures Neck Neck: Yes normal visual inspection, Yes no lymphadenopathy, Yes trachea midline and Yes no JVD Thyroid: Thyroid normal Chest Chest palpation & inspection: normal inspection of the chest, normal palpation of entire chest wall and no tenderness Resp Other: PERCUSSION NOTE IS RESONANT, BREATH SOUNDS ARE VERY DISTANT WITH PROLONGED EXPIRATORY PHASE. NO DEFINITE WHEEZES OR CREPITATIONS ARE HEARD. Effort & Inspection: prolonged expiratory phase Auscultation: no crackles, no wheezes and diminished lung sounds Cardio Palpation: normal PMI Rate: regular rate Rhythm: regular rhythm Heart sounds: no gallops and no murmurs GI Palpation (GI): Soft to palpation, nontender, No hepatosplenomegaly present, no masses and Other GI palpation findings present ( ABDOMINAL WALL IS SOMEWHAT PROTUBERANT BUT NO MASS) Auscultation: normal bowel sounds Back/Spine/Pelvis Thoracic/Lumbar Spine: thoracic and lumbar spine normal to inspection and thoraco-lumbar ROM limited Skin General skin exam: no rashes or lesions noted Neuro General: patient oriented x3, gait normal (Slightly on stable due to arthritis of his knees) and no focal motor deficits Cranial nerves: Yes CN's II-XII intact bilaterally Extrem General: Yes normal to inspection, Yes no calf tenderness, Yes edema (CHRONIC STASIS EDEMA OF BOTH LEGS, BUT MINIMAL AT THIS TIME), Yes venous stasis dermatitis and Yes other Psych Appearance: grossly normal Speech and movement: Normal speech and movement present Results Reviewed Results Reviewed: 6 MINUTES WALK WITH THE O2 CONSERVING MODE Assessment & Plan Assessment & Plan (1) COPD (chronic obstructive pulmonary disease): Comment: HE HAS VERY SEVERE CHRONIC OBSTRUCTIVE PULMONARY DISEASE. AND IT HAS BEEN RELATIVELY STABLE . HE DOES HAVE PERIODS WHEN HE GETS MORE SHORT OF BREATH THAN USUAL, IT MAY BE RELATED TO THE DEGREE OF FLUID RETENTION. HE FEELS BETTER WITH USE OF OXYGEN AT NIGHT. HE WOULD LIKE TO PORTABLE OXYGEN FOR DAYTIME. Code(s): J44.9 - Chronic obstructive pulmonary disease, unspecified Category: Medical Plan: CONTINUE TRELEGY ELLIPTA 1 INHALATION DAILY ALBUTEROL HFA Q 4-6 HOURS P.R.N. ALTERNATIVELY USE ALBUTEROL SOLUTION 2.5 MG IN THE NEBULIZER Q 6 HOURS P.R.N. (2) Dyspnea on exertion: Comment: INCREASED DYSPNEA ON EXERTION IS DUE TO COPD AND GENERAL DECONDITIONING. TODAY PATIENT DID QUALIFY FOR OXYGEN, AND ONCE WE PROVIDE HIM O2 WITH THE PORTABLE CYLINDER, HE IS EXPECTED TO BETTER. Code(s): R06.00 - Dyspnea, unspecified Category: Medical Plan: HE DOES NEED PORTABLE OXYGEN WHEN WALKING, AND THAT WILL MINIMIZE HIS DYSPNEA ON EXERTION. (3) Hypoxemia: Comment: THIS GENTLEMAN DOES HAVE NOCTURNAL HYPOXEMIA AND IS BEING TREATED WITH O2 AT NIGHT. 6 MINUTES WALK DONE TODAY AND HE DOES DESATURATE ON WALKING, HYPOXEMIA CONTROLLED WITH SUPPLEMENTAL OXYGEN AT 2 L/MINUTE Code(s): R09.02 - Hypoxemia Category: Medical Plan: ON 6 MINUTES WALK HE DID OKAY WITH THE OXYGEN CONSERVING MODE AND USING POC AT SETTING OF 4. FEELS MUCH BETTER. WE WILL ARRANGE FOR HIM TO GET POC, AND HE WILL HAVE TO TAKE THAT ALONG WITH HIM WHEN HE GOES TO [place]. Coding Level of Care Code Est Pt Level 3 (07754) Diagnoses COPD (chronic obstructive pulmonary disease) J44.9 Dyspnea on exertion R06.00 Hypoxemia R09.02
[2024-07-03 13:58] VITALS: PULSE 79; O2SAT 96
== END 2024-07-03 12:17 | disposition home or self-care (01) ==
PROVIDERS: Visit Provider Internal Medicine
DX: J44.9 Chronic obstructive pulmonary disease, unspecified (principal); R06.00 Dyspnea, unspecified; R09.02 Hypoxemia
CPT/HCPCS: 94618; 99213

== ENCOUNTER → 2024-07-03 11:04 | Outpatient (BNVA) | payer MEDICARE, BC, SELFPAY | PROVIDERS: Visit Provider Internal Medicine | DX: J44.9 Chronic obstructive pulmonary disease, unspecified (principal); R06.00 Dyspnea, unspecified; R09.02 Hypoxemia; Z99.81 Dependence on supplemental oxygen | CPT/HCPCS: 94618; 99212 ==

== ENCOUNTER 2024-07-29 11:37 | Outpatient (AMB) | payer MEDICARE, BC, SELFPAY ==
--- NOTE | 2024-07-29 11:30 | A.OFFVIS_ITS ---
Intake Visit Reasons: Follow Up/Hand Pain Allergies No Known Allergies [No Known Allergies*] Allergy (Verified 07/03/24 11:38) HPI HPI Follow Up/Hand Pain: Details: 84-year-old man who presents today via televisit for follow up hand pain. He states that his pain is more localized in his hands. He had two surgeries on his hands in the past. He did start physical therapy with minimal to no benefit. His last MRI scan was at [facility] in [place] in January 2024. He has not dropped a disk at the office for review. He was seen at the [facility], and they prescribed tramadol with some relief. He also tried Lyrica and not tolerated it well. He will leave to [place] on August 22, 2024. [facility] Medical History Hypoxemia Leg ulcer, left COPD (chronic obstructive pulmonary disease) Social History Patient Tobacco Use Status: Former Tobacco user Current occupational status: retired Current occupation: left hand Review of Systems Const All systems reviewed & are unremarkable except as noted in HPI and below Telehealth Telehealth Telehealth [facility] Location of provider rendering services: practice address Location of patient: address on file Patient Identification confirmed using: Name, : Yes Telehealth method: video Patient verbally consented to treatment: Yes Patient verbally consented to billing insurance company: Yes Patient informed of any privacy concerns related to visit: Yes Minutes spent on Phone/Video with Pt.: 10 Results Reviewed Results Reviewed: No imaging is available for review. Assessment & Plan Assessment & Plan (1) Cervical radiculopathy: Code(s): M54.12 - Radiculopathy, cervical region Category: Medical (2) History of carpal tunnel surgery of left wrist: Code(s): Z98.890 - Other specified postprocedural states Category: Medical Plan Patient is not interested in further treatment of his condition at this time. Follow up as needed. Scribed for Dr. Alonso by Bartolome Wright, director biomedical engineering, on 07/29/2024. I, Dr. Alonso, have personally reviewed and agree with the information entered by the scribe. Coding Level of Care Code Tele Est Pt Level 3 (81191) Diagnoses Cervical radiculopathy M54.12 History of carpal tunnel surgery of left wrist Z98.890
== END 2024-07-29 11:37 | disposition home or self-care (01) ==
LOC: HO.PMC 11:37
PROVIDERS: Visit Provider Internal Medicine
DX: M54.12 Radiculopathy, cervical region (principal); Z98.890 Other specified postprocedural states
CPT/HCPCS: 99213

== ENCOUNTER → 2024-07-29 11:37 | Outpatient (BNVA) | payer MEDICARE, BC, SELFPAY | PROVIDERS: Visit Provider Internal Medicine ==

== ENCOUNTER 2025-02-27 14:09 | Outpatient (AMB) | payer MEDICARE, BC, SELFPAY ==
--- NOTE | 2025-02-27 14:10 | A.OFFVIS_ITS ---
Vital Signs 02/27/25 14:10 Height 5 ft 8 in Intake Visit Reasons: COPD Intake Note: pt is on the phone and states he is starting to feel little better, on antiobiotic until Monday, finished prendisone yesterday, only slight wheeze. some coughing with phlegm, creamy white yellow. 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 Allergies No Known Allergies [No Known Allergies*] Allergy (Verified 02/27/25 14:20) Medication List - Last Reconciled 02/27/25 by Ziggy Capellan MD albuterol sulfate 2.5 mg (6 mL) inhalation Q4-6H PRN albuterol sulfate 90 mcg/actuation 2 puffs PO Q4-6H PRN apixaban (Eliquis) 5 mg PO BID ascorbate calcium (vitamin C) 500 mg PO DAILY buspirone 10 mg PO TID cholecalciferol (vitamin D3) 50 mcg PO DAILY doxycycline monohydrate 100 mg PO BID 10 days dupilumab (Dupixent) 300 mg subcut Q2W uulkebgafgw-rbtzrkuko-arbvisoy 100-62.5-25 mcg (Trelegy Ellipta) 1 inh PO DAILY meloxicam 15 mg PO DAILY olmesartan 20 mg PO DAILY tramadol 50 mg PO BID PRN trazodone 100 mg PO BEDTIME PRN Do you need a note to return to daycare/school/sports/work: No HPI HPI COPD: Details: THIS 84 YEARS OLD VERY PLEASANT GENTLEMAN. IS A CASE OF ASTHMA/COPD , AND CHRONIC RESPIRATORY FAILURE. HE IS BACK FROM [place] AND WILL BE SPENDING SUMMER MONTHS OVER HERE. HAD AN ACUTE EXACERBATION WITH INCREASED COUGH AND CHEST CONGESTION AND CALLED OVER THE WEEKEND TALKED TO DR. PANTOJA , WHO PRESCRIBED HIM DOXYCYCLINE FOR 10 DAYS AND PREDNISONE FOR A FEW DAYS. HE HAS COMPLETED TAKING PREDNISONE AND STILL ON DOXYCYCLINE, CLAIMS THAT HE IS FEELING MUCH BETTER BUT STILL HAS SOME COUGH AND FEELING OF CHEST CONGESTION. HE USES O2 2 L/MINUTE AT NIGHT AND MOST OF THE TIME DURING THE DAY. HE IS MOSTLY CONFINED TO THE HOUSE. [facility] Medical History Hypoxemia Leg ulcer, left COPD (chronic obstructive pulmonary disease) Social History Patient Tobacco Use Status: Former Tobacco user Current occupational status: retired Current occupation: left hand Review of Systems Const All systems reviewed & are unremarkable except as noted in HPI and below Reports weight gain Eyes Reports no additional complaints ENT Reports no additional complaints Card Denies chest pain, Denies leg edema and Reports dyspnea on exertion Resp Reports cough (OCCASIONAL , MILD ), Reports dyspnea on exertion and Denies wheezing GI Reports no additional complaints Musc Reports arthralgias (MILD ) Neuro Reports no additional complaints Psych Reports no additional complaints Endo Reports no additional complaints Aller/Immun Denies wheezing Physical Exam Vital Signs: TELE VISIT NO PHYSICAL EXAM Telehealth Telehealth Telehealth Platform: Telephone Location of provider rendering services: practice address Location of patient: address on file Patient Identification confirmed using: Name, : Yes Telehealth method: voice only Patient verbally consented to treatment: Yes Patient verbally consented to billing insurance company: Yes Patient informed of any privacy concerns related to visit: Yes Minutes spent on Phone/Video with Pt.: 20 Assessment & Plan Assessment & Plan (1) COPD (chronic obstructive pulmonary disease): Comment: HE HAS VERY SEVERE CHRONIC OBSTRUCTIVE PULMONARY DISEASE. AND IT HAS BEEN RELATIVELY STABLE . HE DOES HAVE PERIODS WHEN HE GETS MORE SHORT OF BREATH THAN USUAL, IT MAY BE RELATED TO THE DEGREE OF FLUID RETENTION. HE FEELS BETTER WITH USE OF OXYGEN AT NIGHT. HE WOULD LIKE TO PORTABLE OXYGEN FOR DAYTIME. HE CAME BACK FROM [place] HE DID HAVE AN ACUTE. EXACERBATION OF COPD HAS BEEN TREATED WITH A COURSE OF DOXYCYCLINE AND PREDNISONE AND IS FEELING BETTER. CONTINUE DUPIXENT 300 MG SUBQ EVERY 2 WEEKS. Code(s): J44.9 - Chronic obstructive pulmonary disease, unspecified Category: Medical Plan: ADVISED TO CONTINUE USING TRELEGY 1 INHALATION DAILY. USE ALBUTEROL SOLUTION IN THE NEBULIZER Q 4-6 HOURS P.R.N. FOR ANY ACUTE DISTRESS OR MAY USE JUST ALBUTEROL HFA 2 PUFFS Q 4-6 HOURS P.R.N.. COMPLETE THE COURSE OF DOXYCYCLINE. (2) Hypoxemia: Comment: THIS GENTLEMAN DOES HAVE NOCTURNAL HYPOXEMIA AND IS BEING TREATED WITH O2 AT NIGHT. 6 MINUTES WALK DONE TODAY AND HE DOES DESATURATE ON WALKING, HYPOXEMIA CONTROLLED WITH SUPPLEMENTAL OXYGEN AT 2 L/MINUTE Code(s): R09.02 - Hypoxemia Category: Medical Plan: USE O2 2 L/MINUTE AT NIGHT. 2 L/MINUTE DURING THE DAYTIME WITH ANY PHYSICAL WORK OR MOVING AROUND, OR FOR ANY RESPIRATORY DISTRESS. Coding Level of Care Code Tele Est Pt Level 4 (21181) Diagnoses COPD (chronic obstructive pulmonary disease) J44.9 Hypoxemia R09.02
--- OUTSIDE RECORDS SUMMARY | 2025-02-27 15:01 | XMS_ITS | Continuity of Care Document ---
Author Organization [facility] Address [address] [place] [address] Phone Care Team Providers Care Resident Services Supervisor Name Role Phone Pankaj Garcia MD Unavailable Unavailable Allergies, Adverse Reactions, Alerts Substance Reaction Status Criticality No Known Allergies Active No Inform ation Medications Medication Instructions Dosage Effective Dates (start - stop) Status Comments MELOXICAM 15 MG TABLET TAKE 1 TABLET BY MOUTH EVERY DAY - Active Medrol (Narendra) 4 mg tablets in a dose pack take by oral route as directed per package instructions 0.00 - Active buspirone 5 mg tablet take 1 tablet by o ral route 2 times every day 5 MG - Active Eliquis 5 mg tablet take 1 tablet by ora l route 2 times every day 5 MG - Active trazodone 50 mg tablet take 1 tablet by oral route 3 times every day after meals 50 MG - Active Procedures Procedure Date Neuroplasty; Median @ Carpal T 23 Offic/outpt E&m [facility] Mod-hi 2 23 Injection Therapeutic Carpal T 23 Dexamethasone Na Phos 4mg/ml Offic/outpt E&m New Mod-hi 45 3 Offic/outpt E&m New Mod-hi 45 3 Advance Directives Directive Yes / No Effective Date File Name No Information Encounters Encounter Description Practice Location Reason(s) For Visit Diagnoses Date Provider Providers Copied on Encounter [facility], [address], [place], [place], [id number], [place] tel:[phone] /[facility] No Information 4 Sandgap Pankaj. [address], [place], [place], [address], [place]. tel:[phone] [facility], [address], [place], [place], [address], [place] tel:[phone] /[facility] No Information 4 Jose Pankaj. [address], [place], [place], [address], [place]. tel:[phone] [facility], [address] [facility], [place], [place], [address], [place] tel:[phone] /[facility] No Information 3 Jose Pankaj. [address], [place], [place], [address], [place]. tel:[phone] Referring Provider: Pankaj Garcia, [address], [place], [address] . tel:[phone] [facility], [address] [facility], [place], [place], [address], [place] tel:[phone] /[facility] No Information 3 Jose Lira. [address], [place], [place], [address], [place]. tel:[phone] Offic/outpt E&m Estab Mod-hi 2 [facility], [address], [place], [place], [address], [place] tel:[phone] /[facility] Left Wrist (chief complaint) Left carpal tunnel syndromeObesi ty, unspecified 3 Jose Lira. [address], [place], [place], [address], [place]. tel:[phone] Referring Provider: Pankaj Garcia, [address], [address] . tel:[phone] Offic/outpt E&m [facility] 45 [facility], [address], [id number], tel:[phone] /[facility] bilateral hand (chief complaint) Obesity, unspecifiedRi ght carpal tunnel syndrome 3 Jose Lira. [address] [facility] [facility] [address], [place], [address], [place]. tel:[phone] Referring Provider: Pankaj Garcia, [address] [address], [place], [address] . tel:[phone] Offic/outpt E&m [facility] 45 [facility], [address], [id number], tel:[phone] /[facility] left hand N/T (chief complaint) Obesity, unspecifiedLe ft carpal tunnel syndrome 3 Kirt Lee. [address] [facility], [address], [id number], [place]. tel:[phone] Referring Provider: Jesus Moralez, [address], [address] . tel:[phone] Family History Family Member Type Diagnosis Age At Onset No Information Payers Payer name Insurance type Covered democrat ID Authoriza tion(s) Medicare Part B [id number] [facility] [id number] Social History Type Description Quantity Date Captured Comments Sex Male Smoking Status No Information Chief Complaint And Reason For Visit No Information Reason For Referral Reason For Referral No Information Plan Of Treatment Date Type Action Status Goal Lifestyle education regardin g diet completed Goal Lifestyle education regardin g diet completed Goal Lifestyle education regardin g diet completed History Of Present Illness Encounter Date Complaint History Of Prese nt Illness Left Wrist Patient is a 83 year old, left hand dominant, male presenting to clinic status post Left carpal tunnel release done at an outside facility by Dr. Camargo (DOS: 12/2021). At last office visit on 02/17/2023 he was given a left carpal tunnel injection which provided 85% relief for 3 months following. Pain level is 5/10. Reports swelling, numbness/tingling, and weakness. bilateral hand Patient is a 82 year old, left hand dominant, male presenting to clinic status post Left carpal tunnel release done at an outside facility by Dr. Camargo (DOS: 12/2021). He presents to clinic for another opinion regarding his healing, he has also seen Dr. Moralez for this issue 11/14/2022. Pain is constant and described as sharp. Pain level is 7/10. Reports swelling, numbness/tingling, and weakness. Also complains of right hand pain. left hand N/T Patient is a 82 year old, left hand dominant, male presenting to clinic status post Left carpal tunnel release done at an outside facility by Dr. Camargo. DOS: 12/2021/ He presents to clinic for a second opinion regarding his healing. Pain is constant and described as sharp. Pain level is 7/10. Reports swelling, numbness/tingling, and weakness. Denies taking any medications for this problem. Denies any previous surgeries to the left hand. Denies any recent falls. Denies smoking.DOS: 12/2021 Functional Status Date Functional Assessmen t No Information Instructions Date Instruction Lynette Infor natalie Lifestyle education regarding di et Related to Obesity, unspecified Lifestyle education regarding di et Related to Obesity, unspecified Lifestyle education regarding di et Related to Obesity, unspecified Assessments Type Assessment Date No Information Patient Care Teams Name Effective Dates (start - stop) Status Members No Information
--- OUTSIDE RECORDS SUMMARY | 2025-02-27 15:01 | XMS_ITS ---
Author Organization [facility] Address [address] [place] [address] Care Team Providers Care Inspectors And Regulatory Officers Name Role Phone Hubert Handy Primary Care Provider Joshua Jones Unavailable [phone] Edvin Samayoa Unavailable [phone] REASON FOR VISIT Refill of Tramadol Encounters Encounter Location Date Provider Diagnosis [address] [address] 06/19/2024 Edvin Samayoa Plan Of Treatment No Information Progress Notes * Donald CORADOAbdielOB:1939 (84 yo M)Acc No.[id number]:06/19/2024 Patient:?Altaf CORADO :1940???Age:83 Y???Sex:Male Address:[address] [place] [address], [address], [place] [address] * true * Date:? Generated for Susie do/Fariha/eTransmitting on:?02/27/2025 03:01 PM EDT
--- OUTSIDE RECORDS SUMMARY | 2025-02-27 15:01 | XMS_ITS | Patient Health Record ---
Author Organization [facility] Address [address] [place] [address] Care Team Providers Care Rag Production Worker Name Role Phone RozinaLeeann gillilandn Primary Care Provider Sb Montero Unavailable [phone] ALLERGIES No Known Allergies REASON FOR REFERRAL No Information MEDICATIONS Medication SIG (Take, Route, Frequency, Duration) Notes Start Date End Date Status Vitamin E Active Vitamin B Complex Ac tive Sennosides-Docusate Sodium PRN Active Saw [place] Active Eliquis 5 MG 1 Orally twice day f or 90 days Active [place] 3 1200 MG 1 capsule Orally Onc e a day Active Olmesartan Medoxomil 20 MG 1 tablet Oral ly Once a day for 30 day(s) 02/16/2023 Active Ascorbic Acid 500 MG 1 tablet Orally Onc e a day for 30 day(s) Active Acetaminophen 325 MG 2 capsules Orally e very 6 hrs Active traZODone HCl 50 MG 1 tablet at bedtime Orally Once a day Active Trelegy Ellipta 200-62.5-25 MCG/INH 1 puff Inhalation Once a day Active Eliquis 5 MG TAKE 1 TABLET BY LENO TH TWICE A DAY for 90 Active Albuterol Sulfate 108 (90 Base) MCG/ACT 1 puff as needed Inhalation every 4 hrs Active busPIRone HCl 5 MG 1 tablet Orally tid Active SOCIAL HISTORY Tobacco Use: Social History Observation Description Date Details (start date - stop date) Never Smoker NA - NA Sex Assigned At : Social History Observation Description Sex Assigned At Unknown Tobacco Use/Smoking Question Answer Notes Are you a nonsmoker Alcohol Screen (Audit-C) Question Answer Notes Did you have a drink containing alcohol in the p ast year? 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) Active confirmed Thoracic aor tic aneurysm without rupture (58767813) PLAN OF TREATMENT Pending Test Test Name Order Date Echocardiogram (35289) 02/16/2023 Ultrasound : Abd/Aorta Comp (27087) 01/22 Ultrasound : Abd/Aorta Comp (81802) 10/23 24 Holter (30466) 11/09/2021 Exercise Stress Nuclear Test 09/05/2022 CARDIOVERSION-[id number] 12/10/2020 FASTING LIPID PANEL 12/10/2020 FASTING LIPID PANEL 11/09/2021 FASTING LIPID PANEL 02/16/2023 COMPREHENSIVE METABOLIC PANEL 02/16/2023 COMPREHENSIVE METABOLIC PANEL 11/09/2021 COMPREHENSIVE METABOLIC PANEL 12/10/2020 MAGNESIUM 11/09/2021 MAGNESIUM 02/16/2023 CBC (INCLUDES DIFF/PLT) 02/16/2023 CBC (INCLUDES DIFF/PLT) 11/09/2021 CBC (INCLUDES DIFF/PLT) 12/10/2020 Transesophageal echo with concious sedat ion provided by Dr [id number] 12/10/2020 Insurance Providers Payer Name Payer Address Payer Phone Subscriber Number Group Number Insured Name Patient Relationship to Insured Coverage Start Date Coverage End Date Medicare of [place] [employer] [address] [place] [phone] [id number] ALEJANDRA JOY Self - patient is the insured [facility] [address] [place] [address] [phone] [id number] ALEJANDRA JOY Self - patient is the insured MEDICAL (GENERAL) HISTORY Medical History History ICD Code * Physicians:PCP-ROZINA chronic obstructive pulmonary disease (C OPD) Atrial fibrillation osteoarthritis insomnia Surgical History Surgery Date(Month/Year) right shoulder surgery 2020 left shoulder surgery 2018 carpal tunnel release 11/2021 Hospitalization History Reason Date(Month/Year) see surgical hx above vaccine-yes, booster-yes
--- OUTSIDE RECORDS SUMMARY | 2025-02-27 15:01 | XMS_ITS | Data Portability ---
Author Organization [place] [facility], [employer], [facility] Address [address] [place] [address] Care Team Providers Care Meteorology Professor Name Role Phone DOLLY CAMARENA Primary Care Provider Assessment Encounter Date Assessment Date Assessment LastModified by Organization Details LastModified Time 10/25/2023 10/25/2023 ASSESSMENT: Mr. 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 He has been managing his pain with Tramadol, Tylenol, and Meloxicam, but reports that only Tramadol provides some relief. He is open to trying new treatment options to manage his pain. PLAN: - Prescribe Lyrica 75 mg twice a day for neuropathy and nerve pain. The patient is advised to start taking the medication at night once a day, and then increase to twice a day once comfortable. - The patient can take both doses at night if preferred, and can continue to take Tramadol as needed. - Follow-up appointment in one month to assess the effectiveness of the new medication and adjust the treatment plan as necessary. [email or web address] Not available 10/25/2023 12:29:20 11/22/2023 11/22/2023 PDMP: 10/25/2023 10/25/2023 4 Pregabalin 75 Mg Capsule 60.00 30 Lo War [id number] Hol (3587) 0/0 1.00 LME [place] 10/12/2023 10/12/2023 3 Tramadol Hcl 50 Mg Tablet 90.00 30 Ia Boy [id number] Agh (2291) 0/0 30.00 MME Private Pay [place] [email or web address] Not available 11/22/2023 11:35:12 Plan of Treatment Reminders Order Date Submit Date Provider Last Modified By Organization Details Last Modified Time Details Appointments None recorded. Lab None recorded. Referral None recorded. Procedures None recorded. Surgeries None recorded. Imaging None recorded. Medication Orders meloxicam 15 mg tablet 2023 024 [facility] #[id number], [address], [place], [address], 4 11:37:28 duloxetine 30 mg capsule,del ayed release 2023 024 [facility]acy #[id number], [address], [place], [address], 4 11:37:29 Lyrica 75 mg capsule 2023 024 [email or web address] [facility]/Pharmacy #[id number], [address], [place], [address], 4 11:28:34 Patient TargetsNo targets recorded. Patient Instructions Encounter Date Encounter Id Patient Instructions Last Modified By Organization Details Last Modified Time 10/25/2023 [id number] high blood pressure: care instructions [email or web address] Not available 10/26/2023 09:51:56 starting a weigh t loss plan: care instructions [email or web address] Not available 10/26/2023 09:51:56 Reason for Referral None Reported. Problems Name Problem SNOMED Code Status Onset Date Resolution Date Notes Provider Name and Address Organization Details Recorded Time Carpal tunnel syndrome 94894049 Active 2023 Melissa Aranda APRN [address], [address], [place], [address] , [facility] 4 07:43:30 Neuropathy 178566838 Active 2023 Melissa Aranda APRN [address], [address], [place], [address] , [facility], [facility] 07:43:47 Hypertensi ve disorder 90274086 Active 2023 Melissa Aranda APRN [address] , [address], [place], [address] , [place] [facility], [facility] 4 07:43:54 Neuralgia 26619928 Active 2023 Evmikey Zhumoradier null, [place] [facility], [facility] 4 12:27:36 Chronic postoperat harmony pain 3647604072995 03 Active 2023 Ev Bourdier null, [place] [facility], [facility] 4 12:27:37 Body mass index 30+ - obesity 755261121 Active 2023 Ev Bourdier null, [place] [facility], [facility] 09:00:09 Problem Notes None recorded. Procedures Surgical History Date Name Laterality Status Provider Name and Address Organization Details Recorded Time Shoulder Surgery completed Ev Bourdier [place] [facility], [facility] 10/25/2023 12:19:32 Knee Surgery completed Ev [employer]ti[employer]urdier [place] [facility], [facility] 10/25/2023 12:19:57 Imaging Results None recorded. Procedure Notes None recorded. Medical Equipment None Reported. Allergies No known drug allergies Medications Name Sig Start Date Stop Date Status Note LastModified by Organization Details LastModified Time BuSpar 10 mg tablet Take 1 tablet twice a day by oral route. 2023 active Not Available Not Available Not Avai lable meloxicam 15 mg tablet TAKE 1 TABLET BY MOUTH EVERY DAY NEEDED active Not Available Not Available No t Available fluorouracil 5 % topical cream PLEASE SEE ATTACHED FOR DETAILED DIRECTIONS active Not Available Not Available N ot Available tramadol 50 mg tablet TAKE 1 TABLET BY MOUTH EVERY 8 HOURS NEEDED FOR 30 DAYS active Not Available Not Available No t Available trazodone 100 mg tablet TAKE 1 TABLET BY MOUTH EVERY DAY AT BEDTIME active Not Available Not Available No t Available albuterol sulfate HFA 90 mcg/actuatio n aerosol inhaler 2 PUFF ORALLY EVERY 4 TO 6 HOURS NEEDED FOR FOR WHEEZING active Not Available Not Available No t Available olmesartan 20 mg tablet TAKE 1 TABLET BY MOUTH EVERY DAY FOR 30 DAYS active Not Available Not Available No t Available duloxetine 30 mg capsule,hans yed release TAKE 1 CAPSULE BY MOUTH TWICE A DAY DIRECTED FOR 30 DAYS active Not Available Not Available Not Available pregabalin 75 mg capsule TAKE 1 CAPSULE BY MOUTH TWICE A DAY FOR 30 DAYS active Not Available Not Available No t Available Eliquis 2.5 mg tablet Take 1 tablet twice a day by oral route. active Not Available Not Available No t Available Treleharriett Ellipta 100 mcg-62.5 mcg-25 mcg powder for inhalation INHALE 1 PUFF EVERY DAY active Not Available Not Available No t Available Vitals Date Recorded Body height Body mass index (BMI) Body weight Oxygen saturation Oxygen saturation in Arterial blood by Pulse oximetry Heart rate Systolic blood pressure Diastolic blood pressure Provider Name and Address Organization Details Last Updated DateTime 4 172.72 cm 30.4 kg/m2 41341.4 7 g 96 % 96 % 77 /min 152 mm[Hg] 85 mm[Hg] Ev Vega [facility] [employer] [facility], [facility] 12:16:37 Date Recorded Body height Oxygen saturation Oxygen saturation in Arterial blood by Pulse oximetry Heart rate Body mass index (BMI) Body weight Respiratory rate Provider Name and Address Organization Details Last Updated DateTime 4 172.72 cm 95 % 95 % 78 /min 30.4 kg/m2 72578.4 7 g 16 /min amber barroso [place] [facility] [employer] [facility], [facility] 11:15:00 Social History Question Answer Notes LastModified by Organizat ion Details LastModified Time Tobacco Smoking Status Never Smoker Ev hurt [facility] [employer] [facility], [facility] 10/25/2023 12:19:03 Do You Have An Advance Directive? No [email or web address] Information not available 11/22/2023 What Is Your Level Of Alcohol Consumption? None Information not available 10/25/2023 Are You Blind Or Do You Have Difficulty Seeing? No [email or web address] Information not available 11/22/2023 Are You A Caregiver? No [email or web address] Information not available 11/22/2023 Are You Currently Employed? No Information not available 11/22/2023 Are You Deaf Or Do You Have Serious Difficulty Hearing? No Information not available 11/22/2023 Have There Been Any Changes To Your Family Or Social Situation? No [email or web address] Information not available 11/22/2023 Are There Any Guns Present In Your Home? No [email or web address] Information not available 11/22/2023 Which Of Your Hands Is Dominant? Left [email or web address] Information not available 11/22/2023 Where Do You Live? SingleLevelHouse [email or web address] Information not available 11/22/2023 Do You Have A Medical Power Of Toy Painter? No [email or web address] Information not available 11/22/2023 What Was The Date Of Your Most Recent Tobacco Screening? 10/25/2023 Information not available 10/25/2023 Do You Have A Patient Advocate? No Information not available 11/22/2023 Do You Use Any Illicit Or Recreational Drugs? No Information not available 10/25/2023 Do You Or Have You Ever Used Any Other Forms Of Tobacco Or Nicotine? No Information not available 10/25/2023 Sex: Male Functional Status Question Answer Note LastModified by Organizat ion Details LastModified Time Do you have difficulty walking or climbing stairs? Yes [email or web address] Information not available 11/22/2023 Do you have transportation difficulties? No Information not available 11/22/2023 Are you able to walk? [email or web address] Information not available 11/22/2023 Do you have difficulty doing errands alone? No [email or web address] Information not available 11/22/2023 Are you able to care for yourself? Yes [email or web address] Information not available 11/22/2023 Do you have difficulty dressing or bathing? No [email or web address] Information not available 11/22/2023 Mental Status Question Answer Note LastModified by Organization D etails LastModified Time Do you have difficulty concentrating, remembering or making decisions? No Information no t available 11/22/2023 Family History Relationship Description Onset Age of this Age Resolved Age Notes LastModified by Organization Details LastModified Time Father No current problems or disability [email or web address] Not available 10/26 08:49:38 Mother No current problems or disability [email or web address] Not available 10/26 08:49:38 Medical History Condition Response Arrhythmia Y Neuropathy Y Hypertension Y Past Encounters Encounter ID Performer Location Encounter Start Date Encounter Closed Date Diagnosis/Indication Diagnosis SNOMED-CT Code Diagnosis ICD10 Code Diagnosis Note [id number] Juju Bob [place] [facility] [address] [place] [address] 10/25/2023 11:21:29 10/25/2023 13:25:21 Neuralgia 27599885 M79.2 Chronic po stoperative pain 1721604579 41105 G89.28 Chronic pain 37476038 G8 9.29 Neuropathy 199490062 M79 .2 Carpal jarett wilfred syndrome of left wrist 5546364005 48301 G56.02 Body mass index 30+ - obesity 396395202 Z68.30 Hypertensive disorder 38 745149 I10 [id number] Juju Bob MD [facility] [address] [place] [address] 11/22/2023 11:04:36 11/22/2023 11:38:36 Carpal tunnel syndrome 77837058 G56.02 Cymbalta (Duoxetine hydrochlor bina)is a selective serotonin and norepineph rine reuptake inhibitor (SSNRI) for oral administra tion.It is indicated for acute and maintenanc e treatment of major depressive disorder (MDD) and Diabetic peripheral neuropathi c pain. Cymbalta is also indicated for the acute treatment of generalize d anxiety disorder (JERRY) and Fibromyalg ia. Nausea was the only common adverse reaction reported asa reson for discontini ation and considered to be drug related. ASSESSMENT : Mr. Peter frost, an 83-year-ol d male, presents with chronic postoperat harmony pain and neuralgia in his right carpal tunnel. The patient's left hand, which had undergone carpal tunnel surgery, is currently causing him the most discomfort . Despite two surgical interventi ons, the patient's pain persists. His hand appears swollen, and his current medication regimen, including Lyrica and pregabalin , is not providing adequate relief and is causing undesirabl e side effects. PLAN: - Discontinu e pregabalin due to side effects - Continue with meloxicam 15 mg for bone and joint pain - Start duloxetine for nerve pain, beginning with a low dose and gradually increasing as tolerated - Consider gabapentin as an alternativ e for nerve pain - Discuss possible carpal tunnel injection at the next visit - Follow-up with hand surgeon as needed. Neuropathy 502983017 M79 .2 Nonopioid treatments were discussed with pt which include but are not limited to: cold/heat therapy, exercise, weight loss, yoga, paige chi, TENS, OTC pain relievers and topical medication s. Services by licensed profession als also reviewed including but not limited to PT/OT, Massage Therapy, Accupunctu re, Behavioral Interventi ons, and Chiropract ic care/Osteo pathic manipulati ve treatment. I have educated this patient regarding the non-opioid treatment alternativ es that are available for the painful condition (advantage s & disadvanta ges were also discussed) , and printed informatio n was provided. The patient has been thoroughly advised of the risks and side effects associated with opioid therapy and acknowledg es a full understand ing of this informatio n. This patient will be monitored closely for treatment efficacy, adverse side effects, and compliance during regular office visits. Chronic po stoperative pain 7772984896 07793 G89.28 Defers any injections at this time. Continue with conservati ve therapies. Continue to follow with PCP and Hand Specialist s. Physical exam performed by NYDIA Pizarro. Reviewed with physician. Treatment and plan of care in collaborat ion with supervisin g physician. Continuati on/changes in treatment plan as directed by supervisin g physician. Health Concerns Section Related Observation LastModified by Organization Detai ls LastModified Time None Recorded Concern Status LastModified by Organization Details LastModified Time None Recorded Advance Directives Directive N: Payers Insurance Date Sequence Insurance Name Policy Number Policy Paiz Covered Member ID Paiz Member ID Guarantor Name 12/11/2023 2 BCBS-ID BLUE CROSS - FEP Mingo Stoll [id number] Altaf Stoll 11/21/2023 1 [place] Altaf Stoll [id number] Altaf Stoll Notes Date Note Type Note Provider Name and Address Organization Details Recorded Time 10/25/2023 text/html Mr. Stoll is an 83-year-old male who presents to the clinic for hand pain. He reports that the pain is primarily in his left hand, which he attributes to a previous diagnosis of carpal tunnel syndrome. He underwent a surgical procedure for the condition, but it was unsuccessful in alleviating his symptoms. He sought a second opinion from an orthopedic surgeon in [facility], but the treatment provided did not yield satisfactory results. He has been managing his pain with Tramadol, which he takes at night as needed, and reports that it provides some relief. He also takes Tylenol and Meloxicam for swelling, but states that these medications do not help with his pain. Juju Bob MD [address], [address], [place], [address], [facility], [facility] 10/26/2023 13:32:10 11/22/2023 text/html HPI ?Where is your pain located?Hand ?Have you been involved in any Motor Vehicle Accident(s) within the past 12 months?No ?When and how did your pain begin?4 years ago ?Does your pain radiate anywhere? If yes, where?No ?At its best ?7 ?At its worst ?9 ?Right at this moment ?7 ?When is your pain worse ?Evening ?How has the pain intensity changed since it began?Worse ?Check all the items that describe your pain: ?Aching ?Burning ?Dull ?Sharp ?Throbbing ?what makes your pain worse ?Lying Down ?what makes your pain better ?Sitting ?Numbness/Tingling If yes, where?Fingers ?Weakness If yes, where?Production Cost Estimator ?Bowel/Bladder Incontinence If yes, when did it start?No ?Have you seen any other physicians for this pain?Yes ?What is/are the name(s) of the physician(s) you have seen regarding this pain?Rozina ?Speciality ?Other ?Nereidaese Explain Other ?Gp ?Approximate Date Seen ?10/26/2023 ?Please sk[place]om[place] all procedures or modalities you have tried to manage or treat your pain with ?Acupuncture ?Medications ?Surgery ?Did It Help?No ?Are you seeking workers compensation as result of your pain?No ?Are you seeking social security benefits/disability as a result of your pain?No Imported from [facility] on 11/22/2023 Mr. Stoll is an 83-year-old male who presents to the clinic for hand pain. He has a history of chronic postoperative pain and neuralgia in his right carpal tunnel. The patient reports that his left hand, which had undergone carpal tunnel surgery, is currently causing him the most discomfort. The surgery was performed in two phases, with the first one being approximately 2.[address] Roland, and the second one about 6-7 weeks ago by a physician named Verenice. Despite these interventions, the patient reports that his pain persists. He also mentions that his hand appears swollen. The patient has been on Lyrica and pregabalin for his neuropathy pain, but he reports that the Lyrica makes him feel like a zombie and exacerbates his COPD symptoms. He is also on BuSpar for anxiety, which he takes as needed. Melissa Aranda, ARTIFICIAL INSEMINATOR [address], [place], [address], [facility], [facility] 11/22/2023 14:32:22
--- OUTSIDE RECORDS SUMMARY | 2025-02-27 15:01 | XMS_ITS | Continuity of Care Document ---
Author Organization [facility] Address [address] [place] [address] Phone Care Team Providers Care Transaction Manager Name Role Phone Sb Crowe MD Unavailable [...] Diagnoses Date Provider Providers Copied on Encounter [facility], [address], [place], [place], [id number], [place] tel:[phone] Bear Atrial fibrillation, unspecified typeEssential (primary) hypertensionHyperte nsive heart disease without heart failureThoracic aortic aneurysm without rupture, unspecified part [address] Sebastien [address], [place], [address], [place]. [phone] Family History Family Member Type Diagnosis Age At Onset No Information Payers Payer name Insurance type Covered democrat ID Authoriza tion(s) No Information Social History [...]
--- OUTSIDE RECORDS SUMMARY | 2025-02-27 15:01 | XMS_ITS | Patient Health Record ---
Author Organization [facility] Address [address] [place] [address] Care Team Providers Care Planning Lead Name Role Phone Hubert Handy Primary Care Provider Joshua Jones Unavailable [phone] Edvin Samayoa Unavailable [phone] Allergies No Known Allergies Reason For Referral No Information Medications Medication SIG (Take, Route, Frequency, Duration) Notes Start Date End Date Status DULoxetine HCl 30 MG TAKE 1 CAPSULE BY M OUTH EVERY DAY for 30 Active Albuterol Sulfate HFA 108 (90 Base) MCG/ACT 2 PUFF ORALLY EVERY 4 TO 6 HOURS NEEDED FOR FOR WHEEZING Inhalation for 28 Days Active busPIRone HCl 10 MG Oral for 90 Days Active Meloxicam 15 MG TAKE 1 TABLET BY LENO TH EVERY DAY Oral for 30 Days Active Eliquis 5 MG TAKE 1 TABLET BY LENO TH TWICE A DAY Oral for 90 Days Active traZODone HCl 100 MG TAKE 1 TABLET BY MO UTH EVERY DAY AT BEDTIME Oral for 90 Days Active traMADol HCl 50 MG 1 tablet as needed O ral every 8 hours for 30 days 03/05/2024 Active Fluorouracil 5 % External for 30 Days Active Pregabalin 50 MG TAKE 1 CAPSULE BY MO UTH EVERYDAY AT BEDTIME for 30 06/09/2024 Active Trelegy Ellipta 100-62.5-25 MCG/ACT Inhalation for 30 Days Activ e Social History Tobacco Use: Social History Observation Description Date Details (start date - stop date) Former Smoker NA - NA Tobacco Use/Smoking Question Answer Notes Tobacco use: former smoker Alcohol Screen (Audit-C) Question Answer Notes Did you have a drink containing alcohol in the p ast year? 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) Active confirmed Problem Dupuytren's contracture (M72.0) Active confirmed Encounters Encounter Location Date Provider Diagnosis [address] [address] 02/28/20[address]oa [address] [address] 03/04/2024 Evdin Samayoa [address] [address] 06/19/2024 Edvin Samayoa Plan Of Treatment Pending Test Test Name Order Date EMG/NCV ARMS 01/10/2024 EMG/NCV ARMS 01/31/2024 MRI : Cervical without Contrast 01/31/20 MRI : Cervical without Contrast 01/10/20 Insurance Providers Payer Name Payer Address Payer Phone Subscriber Number Group Number Insured Name Patient Relationship to Insured Coverage Start Date Coverage End Date [place] [address] [address] [place] [address] [id number] Altaf Villarreal Self - patient is the insured [facility] [address] [place] [address] [phone] [id number] Chris peres Serioana Self - patient is the insured Medical (General) History Surgical History Surgery Date(Month/Year) CTR x2 right shoulder replacement Hospitalization History Reason Date(Month/Year) see above sx's
--- OUTSIDE RECORDS SUMMARY | 2025-02-27 15:01 | XMS_ITS ---
Author Organization [facility] Address [address] [place] [address] Care Team Providers Care Retirement Plan Counselor Name Role Phone Hubert Handy Primary Care Provider Joshua Jones Unavailable [phone] Edvin Samayoa Unavailable [phone] REASON FOR VISIT Refill Duloxetine Medications Medication SIG (Take, Route, Fr equency, Duration) Notes Start Date End Date Status DULoxetine HCl 30 MG 1 capsule Oral Once a day for 30 days Active Encounters Encounter Location Date Provider Diagnosis [address] [address] 02/28/2024 Edvin Samayoa Plan Of Treatment Medication Medication Name Sig Start Date Stop Date Notes DULoxetine HCl 30 MG 1 capsule Oral Once a day for 30 days Progress Notes * HALEYMANDYDonald PERESAbdielOB:1939 (83 yo M)Acc No.[id number]:02/28/2024 Patient:?Altaf CORADO :1940???Age:83 Y???Sex:Male Address:[address] [place], [place] [address], [address], [place] [address] * Refills? Refill DULoxetine HCl Capsule Delayed Release Particles, 30 MG, Oral, 30 Capsule, 1 capsule, Once a day, 30 days, Refills=3 * true * Date:? Generated for Susie do/Fariha/eTransmitting on:?02/27/2025 03:01 PM EDT
--- OUTSIDE RECORDS SUMMARY | 2025-02-27 15:01 | XMS_ITS ---
Author Organization [facility] Address [address] [place] [address] Care Team Providers Care Well Tender Name Role Phone Hubert Handy Primary Care Provider Joshua Jones Unavailable [phone] Edvin Samayoa Unavailable [phone] REASON FOR VISIT Refill on Tramadol Medications Medication SIG (Take, Route, Fr equency, Duration) Notes Start Date End Date Status traMADol HCl 50 MG 1 tablet as needed O ral every 8 hours for 30 days 03/05/2024 Active Encounters Encounter Location Date Provider Diagnosis [address] [address] 03/04/2024 Edvin Samayoa Plan Of Treatment Medication Medication Name Sig Start Date Stop Date Notes traMADol HCl 50 MG 1 tablet as needed O ral every 8 hours for 30 days 03/05/2024 Progress Notes * SHARONANNAMARIEDonald MILLSAbdielOB:1939 (83 yo M)Acc No.[id number]:03/04/2024 Patient:?Altaf CORADO :1940???Age:83 Y???Sex:Male Address:[address] [place], [place] [address], [address], [place] [address] * Refills? Refill traMADol HCl Tablet, 50 MG, Oral, 90 Tablet, 1 tablet as needed, every 8 hours, 30 days, Refills=0 * true * Date:? Generated for Susie do/Fariha/eTransmitting on:?02/27/2025 03:01 PM EDT
== END 2025-02-27 15:11 | disposition home or self-care (01) ==
LOC: HO.HPS 14:09
PROVIDERS: Visit Provider Internal Medicine
DX: J44.9 Chronic obstructive pulmonary disease, unspecified (principal); R09.02 Hypoxemia
CPT/HCPCS: 98016

== ENCOUNTER → 2025-02-27 14:09 | Outpatient (BNVA) | payer MEDICARE, BC, SELFPAY | PROVIDERS: Visit Provider Internal Medicine | DX: Z13.89 Encounter for screening for other disorder (principal) ==

== ENCOUNTER 2025-04-01 08:59 | Outpatient (REF) | payer MEDICARE, BC, SELFPAY ==
--- OUTSIDE RECORDS SUMMARY | 2025-04-02 09:25 | XMS_ITS ---
Author Organization [facility] Address [address] [place] [address] Care Team Providers Care Tank Operator Name Role Phone Hubert Handy Primary Care Provider Joshua Jones Unavailable [phone] Edvin Samayoa Unavailable [phone] REASON FOR VISIT 2 week post inj Encounters Encounter Location Date Provider Diagnosis [address] [address] 02/23/2024 Edvin Samayoa Plan Of Treatment No Information Progress Notes * Hannah CORADOOB:1939 (84 yo M)Acc No.[id number]:02/23/2024 Progress Notes Patient:?Altaf CORADO Provider:Mansoor Nguyen :1940???Age:83 Y???Sex:Male Ranjith e:02/23/2024 Address:[address] [place] [address], [address] [place], [place] [address] Pcp:Hubert Handy Subjective: * Chief Complaints: * ???1. 2 week post inj. * Medical History:? Objective: * Vitals:? Assessment: Plan: * Treatment: * Billing Information: * Visit Code:? * Procedure Codes:? * Electronic signature of Faustino Samayoa MD on 04/02/2025 at 09:25 AM EDT Sign off status: Pending * Provider:Mansoor Nguyen Date:?02/23/2024 Generated for Susie do/Fariha/eTransmitting on:?04/02/2025 09:25 AM EDT
== END 2025-04-01 09:00 | disposition home or self-care (01) ==
LOC: HO.HOSX 08:59
PROVIDERS: Visit Provider Physician Assistant
DX: Z13.89 Encounter for screening for other disorder (principal)

== ENCOUNTER 2025-06-18 12:59 | Outpatient (AMB) | payer MEDICARE, BC, SELFPAY ==
--- OUTSIDE RECORDS SUMMARY | 2024-02-23 07:20 | XMS_ITS ---
Author Organization [facility] Address [address] [place] [id number] Care Team Providers Care Nuclear Plant Construction Worker Name Role Phone Hubert Handy Primary Care Provider Unavailabl Joshua Padilla Unavailable [phone] Edvin Samayoa Unavailable [phone] REASON FOR VISIT 2 week post inj Encounters Encounter Location Date Provider Diagnosis [address] [id number] 02/23/2024 Edvin Samayoa Plan Of Treatment No Information Progress Notes * Donald CORADOgeDOB:1939 (84 yo M)Acc No.[id number]:02/23/2024 Progress Notes Patient: Altaf DAVIS Provider: Tobias Nguyen :1940 A ge:83 Y S ex:Male Date:02/23/2024 Address:[address] [place] [address], [address] [place], [place] [id number] Pcp:Hubert Handy Subjective: * Chief Complaints: * 1 . 2 week post inj. * Medical History: Objective: * Vitals: Assessment: Plan: * Treatment: * Billing Information: * Visit Code: * Procedure Codes: * Electronic signature of Faustino Samayoa MD on 06/18/2025 at 01:25 PM EDT Sign off status: Pending * Provider: Tobias Nguyen Date: 02/23/2024 Generated for Susie do/Fariha/eTjacobysmitting on: 06/18/2025 01:25 PM EDT
[2025-06-18 13:13] VITALS: BP 120/62; PULSE 70; O2SAT 96
--- NOTE | 2025-06-18 13:13 | MHC.OFFVIS ---
Vital Signs 06/18/25 13:13 Height 5 ft 8 in BMI Reason not done Patient refused/unable BP 120/62 Blood Pressure Location Lt brachial Position Sitting Pulse 70 Pulse Source Pulse Oximeter Pulse Oximetry (%) 96 Oxygen Delivery Method Room Air Intake Visit Reasons: copd Intake Note: pt is here for follow up and states he is not too bad, stuffy head today, and has dupixent questions [place] Demonstrator Required: No Allergies No Known Allergies (No Known Allergies*) Allergy (Verified 06/18/25 13:41) Medication List - Last Reconciled 06/18/25 by Ziggy Capellan MD albuterol sulfate 2.5 mg (6 mL) inhalation Q4-6H PRN albuterol sulfate 90 mcg/actuation 2 puffs PO Q4-6H PRN apixaban (Eliquis) 5 mg PO BID ascorbate calcium (vitamin C) 500 mg PO DAILY buspirone 10 mg PO TID cholecalciferol (vitamin D3) 50 mcg PO DAILY dupilumab (Dupixent) 300 mg subcut Q2W rtotsjtyxbl-nzaoiniau-iehmwqnw 100-62.5-25 mcg (Trelegy Ellipta) 1 inh PO DAILY meloxicam 15 mg PO DAILY olmesartan 20 mg PO DAILY tramadol 50 mg PO BID PRN trazodone 100 mg PO BEDTIME PRN Do you need a note to return to daycare/school/sports/work: No HPI HPI copd: Details: ALEJANDRA, IS 84 YEARS OLD GENTLEMAN GROSSLY OBESE AND HAS CHRONIC OBSTRUCTIVE PULMONARY DISEASE. Since he is on Trelegy Ellipta once a day and use of albuterol p.r.n. he has been doing very well. He is also being treated for chronic atrial fibrillation and is on Eliquis 5 mg b.i.d.. Last winter when he was in [place] he did see a geek squad [employer] there. And he was started on Dupixent 300 mg mg subQ q.2 weeks. Patient comes in today for his routine follow-up. He feels much better, weight is down. Edema of his legs with ulcerations has totally resolved. His main complaint is that after the injection of Dupixent he feels more congested for a few days. He does not understand why he was started on Dupixent and wants to stop. He does use oxygen 2 L/minute at night with stationary concentrator and has not needed to use oxygen during the daytime. He say is his POC is not working well. [facility] Medical History Hypoxemia Leg ulcer, left COPD (chronic obstructive pulmonary disease) Social History Patient Tobacco Use Status: Former Tobacco user Current occupational status: retired Current occupation: left hand Review of Systems Const All systems reviewed & are unremarkable except as noted in HPI and below Reports weight gain Eyes Reports no additional complaints ENT Reports no additional complaints Card Denies chest pain, Denies leg edema and Reports dyspnea on exertion Resp Reports cough (OCCASIONAL , MILD ), Reports dyspnea on exertion and Denies wheezing GI Reports no additional complaints Musc Reports arthralgias (MILD ) Neuro Reports no additional complaints Psych Reports no additional complaints Endo Reports no additional complaints Aller/Immun Denies wheezing Physical Exam Vital Signs: Last Vital Signs Pulse 70 06/18/25 13:13 BP 120/62 06/18/25 13:13 Pulse Ox 96 06/18/25 13:13 Oxygen Delivery Method Room Air 06/18/25 13:13 Const General: healthy appearing (EXCEPT FOR BEING OVERWEIGHT .), comfortable, no acute distress, alert and awake Orientation/consciousness: patient oriented x3 HEENT Head: Yes normal to inspection General nose exam: No nasal polyps present and No nasal discharge present Face and sinus: Yes sinuses nontender Mouth: oropharynx normal Throat: Yes posterior oropharynx normal Eyes General: appearance normal, both eyes and all related structures Neck Neck: Yes normal visual inspection, Yes no lymphadenopathy, Yes trachea midline and Yes no JVD Thyroid: Thyroid normal Chest Chest palpation & inspection: normal inspection of the chest, normal palpation of entire chest wall and no tenderness Resp Other: PERCUSSION NOTE IS RESONANT, BREATH SOUNDS ARE VERY DISTANT WITH PROLONGED EXPIRATORY PHASE. NO DEFINITE WHEEZES OR CREPITATIONS ARE HEARD. Effort & Inspection: prolonged expiratory phase Auscultation: no crackles, no wheezes and diminished lung sounds Cardio Palpation: normal PMI Rate: regular rate Rhythm: regular rhythm Heart sounds: no gallops and no murmurs GI Palpation (GI): Soft to palpation, nontender, No hepatosplenomegaly present, no masses and Other GI palpation findings present ( ABDOMINAL WALL IS SOMEWHAT PROTUBERANT BUT NO MASS) Auscultation: normal bowel sounds Back/Spine/Pelvis Thoracic/Lumbar Spine: thoracic and lumbar spine normal to inspection and thoraco-lumbar ROM limited Skin General skin exam: no rashes or lesions noted Neuro General: patient oriented x3, gait normal (Slightly on stable due to arthritis of his knees) and no focal motor deficits Cranial nerves: Yes CN's II-XII intact bilaterally Extrem General: Yes normal to inspection, Yes no calf tenderness, Yes edema (CHRONIC STASIS EDEMA OF BOTH LEGS, BUT MINIMAL AT THIS TIME) and Yes venous stasis dermatitis Psych Appearance: grossly normal Speech and movement: Normal speech and movement present Assessment & Plan Assessment & Plan (1) COPD (chronic obstructive pulmonary disease): Comment: HE HAS VERY SEVERE CHRONIC OBSTRUCTIVE PULMONARY DISEASE. AND IT HAS BEEN RELATIVELY STABLE . HE DOES HAVE PERIODS WHEN HE GETS MORE SHORT OF BREATH THAN USUAL, IT MAY BE RELATED TO THE DEGREE OF FLUID RETENTION. HE FEELS BETTER WITH USE OF OXYGEN AT NIGHT. HE WOULD LIKE TO PORTABLE OXYGEN FOR DAYTIME. He is describing nonspecific side effects from the use of Dupixent and also states that he does not know why he was started on this medication. Code(s): J44.9 - Chronic obstructive pulmonary disease, unspecified Category: Medical Plan: Continue to use Trelegy Ellipta 1 inhalation daily And albuterol solution 2.5 mg in the nebulizer Q 4-6 hours for any acute distress when at home. For outdoors continue albuterol HFA 2 puffs Q 4-6 hours p.r.n.. As far as using Dupixent, because he is having some nonspecific side effects I told him that he ca hold off this agent at this time. I have ordered CBC with diff and IgE level to see if he does have an indication for its use. (2) Dyspnea on exertion: Comment: At this time his dyspnea at rest or on exertion his minimal. I think this is because his COPD is optimally controlled. Code(s): R06.00 - Dyspnea, unspecified Category: Medical Plan: Continue the present treatment . Due deep breathing exercises at least 3 times a day (3) Hypoxemia: Comment: THIS GENTLEMAN DOES HAVE NOCTURNAL HYPOXEMIA AND IS BEING TREATED WITH O2 AT NIGHT. 6 MINUTES WALK TEST DID SHOW THAT HE DOES DESATURATE ON WALKING, HYPOXEMIA CONTROLLED WITH SUPPLEMENTAL OXYGEN AT 2 L/MINUTE. HE WAS PRESCRIBED POC DEVICE, BUT HE HAS HAD ISSUES WITH THAT RIGHT FROM THE BEGINNING. HE DOES NOT WANT TO USE THE PORTABLE CYLINDERS. AT THIS TIME HE DOES NOT HAVE ANY SIGNIFICANT HYPOXEMIA WHEN HE CAME TO THE OFFICE. HE DOES NOT AMBULATE MUCH I THINK HE CAN DO WITHOUT THE PORTABLE OXYGEN. Code(s): R09.02 - Hypoxemia Category: Medical Plan: USE O2 2 L/MINUTE WITH THE PORTABLE DEVICE ONLY P.R.N. FOR RESPIRATORY DISTRESS AND IF O2 SAT FALLS BELOW 89%. Orders: Orders Complete Blood Count Auto Diff Today J44.9 - Chronic obstructive pulmonary disease, unspecified Immunoglobulin E Today J44.9 - Chronic obstructive pulmonary disease, unspecified Coding Level of Care Code Est Pt Level 4 (97050) Diagnoses COPD (chronic obstructive pulmonary disease) J44.9 Dyspnea on exertion R06.00 Hypoxemia R09.02
--- OUTSIDE RECORDS SUMMARY | 2025-06-18 13:26 | XMS_ITS | Patient Health Record ---
Author Organization [facility] Address [address] [place] [address] Care Team Providers Care Biomedical Engineering Supervisor Name Role Phone NicolLeeann gillilandn Primary Care Provider Sb Montero Unavailable [phone] Allergies No Known Allergies Reason For Referral No Information Medications Medication SIG (Take, Route, Frequency, Duration) Notes Start Date End Date Status Vitamin E Active Vitamin B Complex Ac tive Sennosides-Docusate Sodium PRN Active [place] Active Eliquis 5 MG 1 Orally twice day; Duration: 90 days Active [place] 3 1200 MG 1 capsule Orally Onc e a day Active Olmesartan Medoxomil 20 MG 1 tablet Oral ly Once a day; Duration: 30 day(s) 02/16/2023 Active Ascorbic Acid 500 MG 1 tablet Orally Onc e a day; Duration: 30 day(s) Active Acetaminophen 325 MG 2 capsules Orally e very 6 hrs Active traZODone HCl 50 MG 1 tablet at bedtime Orally Once a day Active Trelegy Ellipta 200-62.5-25 MCG/INH 1 puff Inhalation Once a day Active Eliquis 5 MG TAKE 1 TABLET BY LENO TH TWICE A DAY; Duration: 90 Active Albuterol Sulfate 108 (90 Base) MCG/ACT 1 puff as needed Inhalation every 4 hrs Active busPIRone HCl 5 MG 1 tablet Orally tid Active Social History Tobacco Use: Social History Observation Description Date Details (start date - stop date) Never Smoker NA - NA Tobacco Use/Smoking Question Answer Notes Are you a nonsmoker Alcohol Screen (Audit-C) Question Answer Notes Did you have a drink containing alcohol in the p ast year? No Points 0 Interpretation Negative Problems Problem Type SNOMED Code ICD Code Onset Dates Problem Status W/U Status Risk Notes Problem Essential hypertension (74054044) Essential (primary) hypertension (I10) Active confirmed Problem Atrial fibrillation (58739061) A-fib (I48.91) Active confirmed Problem Hypertensive heart disease without congestive heart failure (74407020) Hypertensive heart disease without heart failure (I11.9) Active confirmed Problem Thoracic aortic aneurysm without rupture (00123788) Thoracic aneurysm without mention of rupture (I71.2) Active confirmed Plan Of Treatment Pending Test Test Name Order Date Echocardiogram (45592) 02/16/2023 Ultrasound : Abd/Aorta Comp (76071) 01/22 Ultrasound : Abd/Aorta Comp (58161) 10/23 24 Holter (16582) 11/09/2021 Exercise Stress Nuclear Test 09/05/2022 CARDIOVERSION-[id number] 12/10/2020 FASTING LIPID PANEL 12/10/2020 FASTING LIPID PANEL 11/09/2021 FASTING LIPID PANEL 02/16/2023 COMPREHENSIVE METABOLIC PANEL 02/16/2023 COMPREHENSIVE METABOLIC PANEL 11/09/2021 COMPREHENSIVE METABOLIC PANEL 12/10/2020 MAGNESIUM 11/09/2021 MAGNESIUM 02/16/2023 CBC (INCLUDES DIFF/PLT) 02/16/2023 CBC (INCLUDES DIFF/PLT) 11/09/2021 CBC (INCLUDES DIFF/PLT) 12/10/2020 Transesophageal echo with concious sedat ion provided by Dr [id number] 12/10/2020 Insurance Providers Payer Name Payer Address Payer Phone Subscriber Number Group Number Insured Name Patient Relationship to Insured Coverage Start Date Coverage End Date [employer] of [place] [employer] [address] [place] [address] [id number] ALEJANDRA JOY Self - patient is the insured [facility] [address] [facility] [place] [address] [id number] ALEJANDRA JOY Self - patient is the insured Medical (General) History Medical History History ICD Code * Physicians:PCP-NICOL chronic obstructive pulmonary disease (C OPD) Atrial fibrillation osteoarthritis insomnia Surgical History Surgery Date(Month/Year) right shoulder surgery 2020 left shoulder surgery 2018 carpal tunnel release 11/2021 Hospitalization History Reason Date(Month/Year) see surgical hx above vaccine-yes, booster-yes
--- OUTSIDE RECORDS SUMMARY | 2025-06-18 13:26 | XMS_ITS | Patient Health Record ---
Author Organization [facility] Address [address] [facility] [address] [place] [address] Care Team Providers [facility] Psychiatrist Name Role Phone ALTAF HWANG Primary Care Provider Vonda Diop Unavailable [phone] ArminAj kearney Unavailable [phone] Allergies No Known Allergies Reason For Referral No Information Medications Medication SIG (Take, Route, Frequency, Duration) Notes Start Date End Date Status busPIRone HCl 10 MG 1 tablet Orally 3 ti mes a day Active Mercer 3 1200 MG 1 capsule Orally Onc e a day Active Ascorbic Acid 500 MG 1 tablet Orally Once a day Active traMADol HCl 50 MG 1 tablet as needed O rally twice a day; Duration: 28 days 06/09/2025 Active Vitamin E 100 UNIT as directed Orally Active Vitamin B 12 Active Sennosides 8.6 MG 2 tablets at bedtime as needed Orally Once a day Active [place] 500 MG as directed Orally Active Tylenol 8 Hour 650 MG 2 tablets as neede d Orally every 8 hrs Active Olmesartan Medoxomil 20 MG 1 tablet Orally Once a day Active Eliquis 5 MG as directed Orally Active Problems Problem Type SNOMED Code ICD Code Onset Dates Problem Status W/U Status Risk Notes Problem Paroxysmal atrial fibrillation (359450181) Paroxysmal atrial fibrillation (I48.0) Active confirmed Problem Chronic obstructive pulmonary disease (77970996) Chronic obstructive pulmonary disease, unspecified (J44.9) Active confirmed Problem Primary generalised osteoarthritis (964192354) 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) Active confirmed Problem Benign prostatic hypertrophy without outflow obstruction (336189017) Benign prostatic hyperplasia without lower urinary tract symptoms (N40.0) Active confirmed Problem Essential hypertension (15199787) HTN (hypertension), benign (I10) Active confirmed Vital Signs Heart Rate 78 /min 03/27/2025 Temperature 96.7 degrees Fahrenheit 03/27/2025 Blood pressure diastolic 100 mm Hg 03/27/2025 Oximetry 97 % 03/27/2025 Height 5'9 in 03/27/2025 Blood pressure systolic 140 mm Hg 03/27/2025 Weight 190 lbs 03/27/2025 BMI 28.06 kg/m2 03/27/2025 Encounters Encounter Location Date Provider Diagnosis [address] [place] [address] 03/27/2025 [facility] HTN (hypertension), benign I10 ; Paroxysmal atrial fibrillation I48.0 ; Hyperlipidemia, mixed E78.2 ; Benign prostatic hyperplasia without lower urinary tract symptoms N40.0 ; Primary generalized (osteo)arthritis M15.0 and Chronic obstructive pulmonary disease, unspecified J44.[address] [place] [address] 04/10/2025 Aj Aparicio [address] [place] [address] 04/21/[address] [place] [address] 05/15/[address] [place] [address] 06/09/[address] [place] [address] 06/09/2025 [facility] Assessments Encounter Date Diagnosis (ICD Code) Assessment Notes Treatment Notes Treatment Clinical Notes Section Notes 03/27/2025 HTN (hypertension), benign (ICD-10 - I10) 84-year-old gentleman with history of COPD chronic pain on tramadol, BPH, hypertension, A. fib on Eliquis is here today for a new PCP visit plan as following up. Hypertension blood pressure is elevated 140s/100 usually usually on olmesartan he is not sure about the doses 20 or 40 mg. We will get records from his PCP to adjust medications. check BMP and albumin creatinine ratio Hyperlipidemia check a lipid profile, he is not on any medication per the list he has given us paroxysmal A. fib is not on any beta-daniel or thrush in general daniel he takes Eliquis 5 mg twice a day BPH he takes Flomax 0.4 mg daily Severe osteoarthritis and chronic pain he takes tramadol 50 mg twice a day, he states sometimes he takes it at 3 times a day depending upon pain level. Is requesting tramadol. We have signed an agreement for controlled medication contract. We will give him today tramadol 50 mg twice a day as needed total 28 tablets for 14 days COPD non-oxygen dependent confirmed on his medication and resume anxiety and depression well controlled he is on bupropion 10 mg 3 times a day Lab slip was given for screening blood work 03/27/2025 Paroxysmal atrial fibrillation (ICD-10 - I48.0) 84-year-old gentleman with history of COPD chronic pain on tramadol, BPH, hypertension, A. fib on Eliquis is here today for a new PCP visit plan as following up. Hypertension blood pressure is elevated 140s/100 usually usually on olmesartan he is not sure about the doses 20 or 40 mg. We will get records from his PCP to adjust medications. check BMP and albumin creatinine ratio Hyperlipidemia check a lipid profile, he is not on any medication per the list he has given us paroxysmal Eddie kirby is not on any beta-daniel or thrush in general daniel he takes Eliquis 5 mg twice a day BPH he takes Flomax 0.4 mg daily Severe osteoarthritis and chronic pain he takes tramadol 50 mg twice a day, he states sometimes he takes it at 3 times a day depending upon pain level. Is requesting tramadol. We have signed an agreement for controlled medication contract. We will give him today tramadol 50 mg twice a day as needed total 28 tablets for 14 days COPD non-oxygen dependent confirmed on his medication and resume anxiety and depression well controlled he is on bupropion 10 mg 3 times a day Lab slip was given for screening blood work 03/27/2025 Hyperlipidemia, mixed (ICD-10 - E78.2) 84-year-old gentleman with history of COPD chronic pain on tramadol, BPH, hypertension, A. fib on Eliquis is here today for a new PCP visit plan as following up. Hypertension blood pressure is elevated 140s/100 usually usually on olmesartan he is not sure about the doses 20 or 40 mg. We will get records from his PCP to adjust medications. check BMP and albumin creatinine ratio Hyperlipidemia check a lipid profile, he is not on any medication per the list he has given us paroxysmal Eddie kirby is not on any beta-daniel or thrush in general daniel he takes Eliquis 5 mg twice a day BPH he takes Flomax 0.4 mg daily Severe osteoarthritis and chronic pain he takes tramadol 50 mg twice a day, he states sometimes he takes it at 3 times a day depending upon pain level. Is requesting tramadol. We have signed an agreement for controlled medication contract. We will give him today tramadol 50 mg twice a day as needed total 28 tablets for 14 days COPD non-oxygen dependent confirmed on his medication and resume anxiety and depression well controlled he is on bupropion 10 mg 3 times a day Lab slip was given for screening blood work 03/27/2025 Benign prostatic hyperplasia without lower urinary tract symptoms (ICD-10 - N40.0) 84-year-old gentleman with history of COPD chronic pain on tramadol, BPH, hypertension, A. fib on Eliquis is here today for a new PCP visit plan as following up. Hypertension blood pressure is elevated 140s/100 usually usually on olmesartan he is not sure about the doses 20 or 40 mg. We will get records from his PCP to adjust medications. check BMP and albumin creatinine ratio Hyperlipidemia check a lipid profile, he is not on any medication per the list he has given us paroxysmal A. mirta is not on any beta-daniel or thrush in general daniel he takes Eliquis 5 mg twice a day BPH he takes Flomax 0.4 mg daily Severe osteoarthritis and chronic pain he takes tramadol 50 mg twice a day, he states sometimes he takes it at 3 times a day depending upon pain level. Is requesting tramadol. We have signed an agreement for controlled medication contract. We will give him today tramadol 50 mg twice a day as needed total 28 tablets for 14 days COPD non-oxygen dependent confirmed on his medication and resume anxiety and depression well controlled he is on bupropion 10 mg 3 times a day Lab slip was given for screening blood work 03/27/2025 Primary generalized (osteo)arthritis (ICD-10 - M15.0) 84-year-old gentleman with history of COPD chronic pain on tramadol, BPH, hypertension, A. fib on Eliquis is here today for a new PCP visit plan as following up. Hypertension blood pressure is elevated 140s/100 usually usually on olmesartan he is not sure about the doses 20 or 40 mg. We will get records from his PCP to adjust medications. check BMP and albumin creatinine ratio Hyperlipidemia check a lipid profile, he is not on any medication per the list he has given us paroxysmal A. mirta is not on any beta-daniel or thrush in general daniel he takes Eliquis 5 mg twice a day BPH he takes Flomax 0.4 mg daily Severe osteoarthritis and chronic pain he takes tramadol 50 mg twice a day, he states sometimes he takes it at 3 times a day depending upon pain level. Is requesting tramadol. We have signed an agreement for controlled medication contract. We will give him today tramadol 50 mg twice a day as needed total 28 tablets for 14 days COPD non-oxygen dependent confirmed on his medication and resume anxiety and depression well controlled he is on bupropion 10 mg 3 times a day Lab slip was given for screening blood work 03/27/2025 Chronic obstructive pulmonary disease, unspecified (ICD-10 - J44.9) 84-year-old gentleman with history of COPD chronic pain on tramadol, BPH, hypertension, A. mirta on Eliquis is here today for a new PCP visit plan as following up. Hypertension blood pressure is elevated 140s/100 usually usually on olmesartan he is not sure about the doses 20 or 40 mg. We will get records from his PCP to adjust medications. check BMP and albumin creatinine ratio Hyperlipidemia check a lipid profile, he is not on any medication per the list he has given us paroxysmal A. mirta is not on any beta-daniel or thrush in general daniel he takes Eliquis 5 mg twice a day BPH he takes Flomax 0.4 mg daily Severe osteoarthritis and chronic pain he takes tramadol 50 mg twice a day, he states sometimes he takes it at 3 times a day depending upon pain level. Is requesting tramadol. We have signed an agreement for controlled medication contract. We will give him today tramadol 50 mg twice a day as needed total 28 tablets for 14 days COPD non-oxygen dependent confirmed on his medication and resume anxiety and depression well controlled he is on bupropion 10 mg 3 times a day Lab slip was given for screening blood work Plan Of Treatment Future Test Test Name Order Date CBC with Diff, Platelet, [id number] 02/2025 Albumin/Creatinine Ratio,[id number] Lipid Panel With LDL/HDL Ratio-[id number] Comp. Metabolic Panel [id number] PSA (Serial Monitor)-[id number] 03/27/2025 Next Appt Details Provider Name:Vonda Diop, 1 01:30:00 PM, [address] [place] [address], [phone], Insurance Providers Payer Name Payer Address Payer Phone Subscriber Number Group Number Insured Name Patient Relationship to Insured Coverage Start Date Coverage End Date Medicare [address] [place] [address] [id number] Altaf Villarreal Self - patient is the insured [facility] [address] [place] [address] [id number] Altaf Villarreal Self - patient is the insured Medical (General) History Medical History History ICD Code hypertension Atrial fibrillation on Eliquis Hyperlipidemia COPD non-oxygen dependent Anxiety and depression BPH Osteoarthritis of multiple joints Chronic pain on tramadol Insomnia left hand carpal tunnel syndrome Surgical History Surgery Date(Month/Year) bilateral shoulder replacement surgery Right knee replacement Left hand failed carpal tunnel surgery Bilateral inguinal hernia repair
--- OUTSIDE RECORDS SUMMARY | 2025-06-18 13:26 | XMS_ITS | Patient Health Record ---
Author Organization [facility] Address [address] [place] [address] Care Team Providers Care Machine Cell Tuber Name Role Phone Hubert Handy Primary Care Provider Joshua Jones Unavailable [phone] Edvin Samayoa Unavailable [phone] Allergies No Known Allergies Reason For Referral No Information Medications Medication SIG (Take, Route, Frequency, Duration) Notes Start Date End Date Status DULoxetine HCl 30 MG [facility] 1 [facility]; Duration: 30 Active Albuterol Sulfate HFA 108 (90 Base) MCG/ACT 2 PUFF ORALLY EVERY 4 TO 6 HOURS NEEDED FOR FOR WHEEZING Inhalation; Duration: 28 Days Active busPIRone HCl 10 MG Oral; Duration: 90 Days Active Meloxicam 15 MG TAKE 1 TABLET BY LENO TH EVERY DAY Oral; Duration: 30 Days Active Eliquis 5 MG TAKE 1 TABLET BY LENO TH TWICE A DAY Oral; Duration: 90 Days Active traZODone HCl 100 MG TAKE 1 TABLET BY MO [facility] EVERY DAY AT BEDTIME Oral; Duration: 90 Days Active traMADol HCl 50 MG 1 tablet as needed O ral every 8 hours; Duration: 30 days 03/05/2024 Active Fluorouracil 5 % External; Duration: 30 Days Active Pregabalin 50 MG TAKE 1 CAPSULE BY MO [facility] EVERYDAY AT BEDTIME; Duration: 30 06/09/2024 Active Trelegy Ellipta 100-62.5-25 MCG/ACT Inhalation; Duration: 30 Days Active Social History Tobacco Use: Social History [...] Problem Localized, primary osteoarthritis of the wrist (961455667) Primary osteoarthritis, 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) Active confirmed Problem Localized, primary osteoarthritis of the hand (611081621) Primary osteoarthritis of first carpometacarpal joint of left hand (M18.12) Active confirmed Problem Localized, primary osteoarthritis of the hand (690968519) 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) Active confirmed Problem Contracture of palmar fascia (697140800) Dupuytren's contracture (M72.0) Active confirmed Encounters Encounter Location Date Provider Diagnosis [facility] [address] [place] [address] 06/19/2024 Edvin Samayoa Plan Of Treatment Pending Test Test Name Order Date EMG/NCV ARMS 01/10/2024 EMG/NCV ARMS 01/31/2024 MRI : Cervical without Contrast 01/31/20 MRI : Cervical without Contrast 01/10/20 Insurance Providers Payer Name Payer Address Payer Phone Subscriber Number Group Number Insured Name Patient Relationship to Insured Coverage Start Date Coverage End Date [place] [address] [address] [place] [address] [id number] Altaf Villarreal Self - patient is the insured [facility] [address] [place] [address] [phone] [id number] Altaf Villarreal Self - patient is the insured Medical (General) History Surgical History Surgery Date(Month/Year) CTR x2 right shoulder replacement Hospitalization History Reason Date(Month/Year) see above sx's
--- OUTSIDE RECORDS SUMMARY | 2025-06-18 13:26 | XMS_ITS | Patient Health Record ---
Author Organization [facility] Address [address] [place] [address] Care Team Providers Care Inseam Trimmer Name Role Phone Eve GOMEZ, Vidal Primary Care Provider Clay Vergara Unavailable [phone] Reason For Referral No Information Problems Problem Type SNOMED Code ICD Code Onset Dates Problem Status W/U Status Risk Notes Problem Special screening for malignant neoplasms, colon (V76.51) Active confirmed Plan Of Treatment No Information Insurance Providers Payer Name Payer Address Payer Phone Subscriber Number Group Number Insured Name Patient Relationship to Insured Coverage Start Date Coverage End Date MEDICARE OF [place] [address] [place] [address] [phone] [id number] ALEJANDRA JOY Self - patient is the insured [facility] [address] [place], [place] [id number] ALEJANDRA JOY Self - patient is the insured
== END 2025-06-18 13:41 | disposition home or self-care (01) ==
LOC: HO.HPS 13:00
PROVIDERS: Visit Provider Internal Medicine
DX: J44.9 Chronic obstructive pulmonary disease, unspecified (principal); R06.00 Dyspnea, unspecified; R09.02 Hypoxemia
CPT/HCPCS: 99214

== ENCOUNTER 2025-06-18 12:59 | Outpatient (REF) | payer MEDICARE, BC, SELFPAY ==
--- OUTSIDE RECORDS SUMMARY | 2024-07-16 05:16 | XMS_ITS | Continuity of Care Document ---
Author Organization [facility] Address [address] [place] [address] Phone Care Team Providers Care Hat Brusher Machine Name Role Phone Sb Crowe MD Unavailable Unavailable Allergies, Adverse Reactions, Alerts Substance Reaction Status Criticality No Known Allergies Active No Inform ation Medications Medication Instructions Dosage Effective Dates (start - stop) Status Comments Eliquis 5 mg tablet take 1 tablet by oral route 2 times every day 5 MG - Active trazodone 50 mg tablet take 1 tablet by oral route every day at bedtime 50 MG - Active olmesartan 20 mg tablet take 1 tablet by oral route every day 20 MG - Active Trelegy Ellipta 200 mcg-62.5 mcg-25 mcg powder for inhalation inhale 1 puff by inhalation route every day at the same time each day 1.00 puff - Active buspirone 5 mg tablet take 1 tablet by oral route 2 times every day 5 MG - Active ascorbic acid (vitamin C) 500 mg tablet - Active Eliquis 5 mg tablet take 1 tablet by oral route 2 times every day 5 MG - Active ProAir RespiClick 90 mcg/actuation breath activated inhale 2 puff by inhalation route every 4 - 6 hours as needed 180 MCG - Active acetaminophen 325 mg capsule take 1 capsule by oral route every day 1 capsule - Active VITAMIN E (unknown strength) Not Available - Active VITAMIN B COMPLEX (unknown strength) Not Available - Active SENNOSIDES-DOCUSATE SODIUM (unknown strength) Not Available - Active SAW PALMETTO (unknown strength) Not Available - Active Advance Directives Directive Yes / No Effective Date File Name No Information Encounters Encounter Description Practice Location Reason(s) For Visit Diagnoses Date Provider Providers Copied on Encounter [facility], [address], [place], [place], [id number], [place] tel:[phone] [place] Atrial fibrillation, unspecified typeEssential (primary) hypertensionHyperte nsive heart disease without heart failureThoracic aortic aneurysm without rupture, unspecified part [address] Sebastien Bas[address]to. [address], [place], [address], [place]. tel:[phone] Family History Family Member Type Diagnosis Age At Onset No Information Payers Payer name Insurance type Covered constitution party ID Authoriza tion(s) No Information Social History Type Description Quantity Date Captured Comments Alcohol Use Details Unknown Caffeine Use Details Unknown Tobacco Use Status No Information Smoking Status No Information Sex Male Chief Complaint And Reason For Visit No Information Reason For Referral Reason For Referral No Information History Of Present Illness Encounter Date Complaint History Of Prese nt Illness No Information Functional Status Date Functional Assessmen t No Information Instructions Date Instruction Additional Infor mation No Information Assessments Type Assessment Date No Information Patient Care Teams Name Effective Dates (start - stop) Status Members No Information
--- OUTSIDE RECORDS SUMMARY | 2025-04-01 07:50 | XMS_ITS | Continuity of Care Document ---
Author Organization [facility] Address [address] [place] [address] Phone Care Team Providers Care Project Drilling Engineer Name Role Phone Pankaj Garcia MD Unavailable [...] Median @ Carpal T 23 Offic/outpt E&m [facility] Mod-hi 2 23 Injection Therapeutic Carpal T 23 Dexamethasone Na Phos 4mg/ml Offic/outpt E&m New Mod-hi 45 3 Offic/outpt E&m New Mod-hi 45 3 Advance Directives Directive Yes / No Effective Date File Name No Information Encounters Encounter Description Practice Location Reason(s) For Visit Diagnoses Date Provider Providers Copied on Encounter [facility], [address], [place], [place], [id number], [place] tel:[phone] /[facility] No Information 5 Jose Pankaj. [address], [place], [place], [id number], [place]. tel:[phone] [facility], [address], [place], [place], [address], [place] tel:[phone] /[facility] No Information 4 Jose Lira. [address], [place], [place], [address], [place]. tel:[phone] [facility], [address] [facility], [place], [place], [address], [place] tel:[phone] /[facility] No Information 3 Jose Lira. [address], [place], [place], [address], [place]. tel:[phone] Referring Provider: Pankaj Garcia, [address], [place], [address] . tel:[phone] [facility], [address] [facility], [place], [place], [address], [place] tel:[phone] /[facility] No Information 3 Jose Lira. [address], [place], [place], [address], [place]. tel:[phone] Offic/outpt E&m Estab Mod-hi 2 [facility], [address], [place], [place], [address], [place] tel:[phone] /[facility] Left Wrist (chief complaint) Left carpal tunnel syndromeObesi ty, unspecified Nov- 3 Jose Lira. [address], [place], [place], [address], [place]. tel:[phone] Referring Provider: Pankaj Garcia, [address], [place], [address] . tel:[phone] Offic/outpt E&m [facility] 45 [facility], [address], [id number], [place] tel:[phone] /[facility] bilateral hand (chief complaint) Obesity, unspecifiedRi ght carpal tunnel syndrome 3 Jose Lira. [address] [facility] [facility] [address], [place], [address], [place]. tel:[phone] Referring Provider: Panakj Garcia, [address] [address], [place], [address] . tel:[phone] Offic/outpt E&m [facility] 45 [facility], [address], [id number], tel:[phone] /[facility] left hand N/T (chief complaint) Obesity, unspecifiedLe ft carpal tunnel syndrome 3 Kirt Lee. [address] [facility], [address], [id number], [place]. tel:[phone] Referring Provider: Jesus Moralez, [address], [address] . tel:[phone] Family History Family Member Type Diagnosis Age At Onset No Information Payers Payer name Insurance type Covered green party ID Authoriza tijarrett(s) Medicare Part B [id number] [facility] [id number] Social History Type Description Quantity Date Captured [...] No Information Instructions Date Instruction Additional Infor natalie Lifestyle education regarding di et Related to Obesity, unspecified Lifestyle education regarding di et Related to Obesity, unspecified Lifestyle education regarding di et Related to Obesity, unspecified Assessments Type Assessment Date No Information Patient Care Teams Name Effective Dates (start - stop) Status Members No Information
[2025-06-18 13:56] LABS: MANUAL DIFF FLAG NO
[2025-06-18 15:00] LABS: Hematocrit 39.5 % (42.0-52.0); Hemoglobin 12.7 g/dl (14.0-18.0); Imm Gran Abs Auto 0.04 X10*3/uL (0.00-0.03); Imm Gran Pct Auto 0.5 % (0.0-0.4); Lymphocytes Absolute Auto 1.1 X10*3/uL (1.2-4.9); Mean Corpuscular HGB Conc 32.2 g/dl (31.0-36.0); Mean Corpuscular Hemoglobin 29.5 pg (27.0-33.0); Mean Corpuscular Volume 91.9 fL (80.0-98.0); NRBC Abs Auto 0.000 X10*3/uL (0.0-0.012); NRBC Pct Auto 0.0 /100WBC (0.0-0.2); Platelet Count 332 X10*3/uL (160-400); Red Blood Count 4.30 X10*6/uL (4.60-5.80); White Blood Count 7.6 X10*3/uL (4.8-10.8)
== END 2025-06-18 13:00 | disposition home or self-care (01) ==
LOC: HO.LAB 12:59
PROVIDERS: Visit Provider Internal Medicine
DX: J44.9 Chronic obstructive pulmonary disease, unspecified (principal); R06.00 Dyspnea, unspecified; R09.02 Hypoxemia; D72.10 Eosinophilia, unspecified; Z79.51 Long term (current) use of inhaled steroids; Z87.891 Personal history of nicotine dependence
CPT/HCPCS: 36415; 82785; 85025; 99212